=== PATIENT | male | born 2000 | race Caucasian/White ===

== ENCOUNTER 2020-03-31 19:33 | Emergency (ER) | payer OTHER, SELFPAY ==
[2020-03-31 20:10] VITALS: BP 137/92; PULSE 98; RESP 16; TEMP 36.4; O2SAT 95; BMI 17.2
--- NOTE | 2020-03-31 21:17 | ED_ITS ---
HPI - Psych General Chief Complaint: Psychiatric Symptoms Stated Complaint: crisis Time Seen by Provider: 03/31/20 21:37 Source: patient Mode of arrival: ambulatory Limitations: no limitations History of Present Illness HPI Narrative: 20-year-old male with significant psychiatric past medical history presents with casper, and over 6 months of medication noncompliance. He is unable to answer questions regarding his psychiatric state and if he is suicidal At this time. His answers are tangential and focused on his friend Duncan And continually states that he is enjoying the moment. He denies any physical complaints at this time, denies suicidal ideation, homicidal ideation, and auditory and visual hallucinations. Related Data Allergies Allergy/AdvReac Type Severity Reaction Status Date / Time No Known Allergies Allergy Verified 03/31/20 20:25 [No Known Allergies*] Review of Systems Review of Systems: Constitutional: No Fever, No Chills ENT/Mouth: No Ear Pain, No Nasal Congestion, No sore throat Eyes: No Eye Pain, No Swelling, No Redness Cardiovascular: No Chest Pain, No SOB Respiratory: No Cough, No Sputum, No Dyspnea Gastrointestinal: No Nausea, No Vomiting, No Diarrhea, No Hematochezia, No Melena Genitourinary: No Dysuria, No Urinary Frequency, No Hematuria Musculoskeletal: No Myalgias Skin: No Skin Lesions, No rash Neuro: No Weakness, No Numbness, No Paresthesias, No Dizziness, No Headache Psych: positive Anxiety, positive Depression, No SI/HI Heme/Lymph: No Lymphadenopathy Endocrine: No Polyuria, No Polydipsia Yes all other systems are reviewed and are negative [facility] Past Medical History Attestation statement: The following information was validated with the patient. Source: old records reviewed Social History Social History Advance Directives: No Advance Directives Information Provided: No Physical Exam Vital Signs: Vital Signs: Last Vital Signs Temp 98.1 F 03/31/20 23:20 Pulse 63 03/31/20 23:20 Resp 17 03/31/20 23:20 BP 134/88 03/31/20 23:20 Pulse Ox 97 03/31/20 23:20 Body Mass Index 17.2 Appearance: Alert. Oriented X3. No acute distress. Eyes: Pupils equal, round and reactive to light. ENT: Pharynx normal. Neck: Normal inspection. Neck supple. CVS: Normal heart rate and rhythm. Pulses normal. Respiratory: No respiratory distress. Breath sounds normal. Abdomen: Soft and nontender. Skin: Skin warm and dry. Normal skin color. Normal skin turgor. Extremities: No lower extremity edema. Neuro: No motor deficit. No sensory deficit. Course Course Course Narrative: 20-year-old male with significant psychiatric history presents with psychosis, casper, has not taken his medications in several months. plan of care is for drugs of abuse screen, M5 consult, care team -DEMETRIA burt. Reevaluation(s) Reevaluation #1: Care team Consult complete, plan is involuntary bed search for psychosis. Time: 00:29 MDM - Psych Differential Diagnosis Differential diagnosis: Likely acute psychosis, depression, drug-induced psychotic disorder, acute anxiety, mood disorder and schizoaffective disorder Restraints Face to Face Assessment: Face to Face Assessment: Current Situation: After assessment of the patient, a review of the pertinent medical record and a discussion with nursing staff, I feel the patient requires a restrain intervention. Reaction To: [] Medical Condition: [] Behavioral State: [] Continued Need: [] Medical Records Attestation: I reviewed the patient's medical records. Lab Data Attestation: I reviewed the patient's lab results. Discharge Plan Discharge Clinical Impression: Acute psychosis
--- NOTE | 2020-03-31 22:16 | PC.NURSE ---
Care team completed the assessment, patient compliant but tangential and pressured per Care team, patient disposition is inpatient bed search. patient denied any physical distress at this time, will continue to monitor.
[2020-03-31 23:20] VITALS: BP 134/88; PULSE 63; RESP 17; TEMP 36.7; O2SAT 97
--- NOTE | 2020-04-01 00:06 | PC.NURSE ---
Patient in milieu watching TV, hyperverbal/pressured/but in good behavioral control. Denied distress at this time, will continue to monitor.
[2020-04-01 01:23] LABS: Amphetamine Screen Urine Not Detected (Not Detect); Barbiturates, Urine Not Detected (Not Detect); Benzodiazepines Screen Urine Not Detected (Not Detect); Cannabinoid Screen Urine POSITIVE (Not Detect); Cocaine Screen Urine Not Detected (Not Detect); Opiate Screen Urine Not Detected (Not Detect); Phencyclidine Screen Urine Not Detected (Not Detect)
[2020-04-01] MEDS: LORazepam 1 MG TABLET PO ×2 (02:57→19:17)
[2020-04-01] MEDS: OLANZapine 5 MG TABLET PO ×2 (02:57→19:17)
--- NOTE | 2020-04-01 03:02 | PC.NURSE ---
Patient up sitting in chair in hallway, wide awake/hyperverbal/loud, patient offered choice of medication from past medication list which he stopped taking since August 2019, agreed to take olanzapine 5 mg and Ativan 1 mg , Provider notified/ordered Olanzapine 5 mg and Ativan 1 mg/adminstered/patient compliant/pending effect, will continue to monitor.
--- NOTE | 2020-04-01 04:26 | PC.NURSE ---
Patient responded well Ativan and Olanzapine administered earlier, patient is currently in bed appears sleeping comfortably, no distress observed/reported, respiration +/=/non-labored bilaterally, will continue to monitor.
--- NOTE | 2020-04-01 06:28 | PC.NURSE ---
Patient in bed appears sleeping, no distress observed/reported, respiration +/=/non-labored bilaterally, will continue to monitor.
--- NOTE | 2020-04-01 07:17 | PC.NURSE ---
Report received from SIGRID Layton. Pt resting, resp unlabored.
[2020-04-01 10:31] LABS: COVID-19 Test Negative (Negative)
--- NOTE | 2020-04-01 11:32 | MHC.CARE ---
Wing psych unit reviewed records and decided they will be taking patient from their ED for the available beds they have.
--- NOTE | 2020-04-01 11:36 | MHC.CARE ---
CARE Team faxed patients assessment and records to other facilities for [facility] bed search, awaiting response.
[2020-04-01 12:09] VITALS: BP 119/72; PULSE 51; TEMP 36.3; O2SAT 98
--- NOTE | 2020-04-01 12:46 | PC.NURSE ---
Pt approached nurses station, speech pressured, pt reviewing past events, states that he wants to protect other pt. C joanna angel.
--- NOTE | 2020-04-01 13:08 | PC.NURSE ---
pt refusing to take his zyprex at this time, states that he does need any medications
--- NOTE | 2020-04-01 15:24 | PC.NURSE ---
pt in common area, watching television. Pt educated re: olanzapine and lorazepam- will consider taking it if needed.
--- NOTE | 2020-04-01 16:03 | MHC.CARE ---
CARE received a return call from Pts mother who reported Pt has been increasingly manic over the past couple of weeks and felt he needed to be hospitalized to stabilize. Pts mother is concerned regarding the amount marijuana he is using as it contributes to his casper. Pts mother in agreement Pt needs to be hospitalized.
--- NOTE | 2020-04-01 16:08 | MHC.CARE ---
Pts bedsearch is exhausted for the day.
[2020-04-01 16:51] VITALS: BP 105/77; PULSE 61; RESP 20; TEMP 36.4; O2SAT 97
--- NOTE | 2020-04-01 19:07 | PC.NURSE ---
Report received. PT is resting quietly in his room. Calm and cooperative. Awaiting psych consult in the morning.
--- NOTE | 2020-04-01 22:00 | MHC.CARE ---
CARE team presented to [facility] pod for mental status update. Patient is too sedated to participate in meaningful conversation at this time. CARE team reviewed chart and collaterals. Plan is to continue bedsearch tomorrow. No change in disposition or diagnosis. Patient is on a section 12. Plan for psychiatry consult tomorrow. CARE team will complete a 24 hour reassessment tomorrow if placement is not found.
[2020-04-01 22:02] VITALS: BP 104/63; PULSE 61; RESP 16; TEMP 36.2; O2SAT 96
[2020-04-02 06:48] VITALS: BP 106/78; PULSE 86; RESP 17; TEMP 36.4; O2SAT 98
--- NOTE | 2020-04-02 07:18 | PC.NURSE ---
Report recieved. Pt currently walking around unit, calm and cooperative. PT denies complaints. Pt is inpatient bedsearch.
--- NOTE | 2020-04-02 10:05 | PC.NURSE ---
pt conversing appropriately w staff, expressing having some stressors r/t other pts in unit. pt verbalizes feeling more calm w therapeutic talk w staff. pt coloring w utensils calmly.
[2020-04-02 10:12] VITALS: BP 109/78; PULSE 80; RESP 16; TEMP 36.3; O2SAT 100
[2020-04-02] MEDS: Nicotine Polacrilex 2 MG GUM 4 MG BUCCAL (11:05)
--- NOTE | 2020-04-02 13:26 | MHC.CARE ---
Bedsearch is exhausted for the day.
[2020-04-02] MEDS: Nicotine Polacrilex 2 MG GUM BUCCAL ×3 (14:09→21:08)
--- NOTE | 2020-04-02 16:16 | PC.NURSE ---
pt sitting in millieu, conversing with other pts, calm and cooperative.
[2020-04-02 16:29] VITALS: BP 135/77; PULSE 73; RESP 19; TEMP 36.4; O2SAT 98
--- NOTE | 2020-04-02 19:23 | MHC.CARE ---
CARE team met with patient in [facility] pod room 5 at patient's request. He is asking to review the terms of his section 12 as he does not agree. Per nurses, patient has been calm and cooperative throughout the day. Patient did appear calm and in behavioral control. Patient also appeared to be attempting to demonstrate to CARE team how well he was behaving. Explained that he does not agree with his section 12. Shared that he agrees only that he is hyperverbal because he has a lot to say and sometimes interrupts, but that he has not done so recently. Patient is asking if he really needs to remain in the emergency room. CARE team explained the bedsearch, section 12, and mental status update process. Patient verbalized understanding. CARE team explained that patient's disposition would not change this evening but that if he is able to remain symptom-free overnight and CARE team sees that he is able to string a longer period of stability together, it is possible that it would be recommended he could discharge home prior to being placed. CARE team emphasized that keeping him in the ED is for his safety and that if he appears to continue to need stabilization, he will continue to be held here. Patient is in agreement that when he arrived to the ED he was not stable and that despite being calm today he still needs further care. Patient states he is in agreement to going to but that he does not want substance treatment. The longer patient and CARE team spoke, the more symptomatic patient appeared to become. Was still in control and pleasant, however patient began stating the reason he is doing better is that he has found out his friend Duncan is okay. Patient began stating he can't live without Duncan, and that if Duncan dies patient would not be able to continue to live. Spoke about this friend at length. Patient began talking about a variety of themes including sexuality and money. Patient reports now that I know I'm staying overnight I'm not taking medications. Was upset that the hospital does not allow micro-dosing. Patient mentioned a friend who is sick and that he had planned to bring her soup. When CARE team suggested perhaps patient's mother could deliver the soup he jumped up to arrange this. Was apologetic after he noticed the impulsivity of this and asked if the conversation could be continued later. Patient continues to be polite and pleasant despite ongoing symptom presentation. CARE team agreed to check in with patient later this evening.
[2020-04-02] MEDS: LORazepam 1 MG TABLET PO (22:32)
--- NOTE | 2020-04-02 22:45 | MHC.CARE ---
CARE team returned to pod to meet with patient as promised earlier. Met in patient's room [id number]. Patient speaking in circles. Talking about interpersonal relationships. At one point referenced that people expect him to be The Chosen One but when asked to clarify he stated his friend is the chosen one to him and he is the chosen one to many of his friends, referencing their importance to one another. Patient used the time to process. CARE offered empathic listening and support. Patient agreeable to evening medications. Reports he has an appointment with Zahra Le on Saturday for therapy. Indicates he feels he needs more frequent sessions but insurance won't cover it. Patient plans to take prn and try to sleep.
--- NOTE | 2020-04-03 01:08 | PC.NURSE ---
PT is sleeping in his room. Breathing is even and unlabored at this time. PT to be reevaluated in the morning by CARE team.
[2020-04-03] MEDS: Nicotine Polacrilex 2 MG GUM BUCCAL ×5 (05:53→19:54)
[2020-04-03 06:31] VITALS: BP 137/83; PULSE 72; RESP 16; TEMP 36.1; O2SAT 100
--- NOTE | 2020-04-03 07:46 | PC.NURSE ---
PT currently watching tv, attempting to interact with other patients. PT calm and cooperative, pleasant in conversation.
[2020-04-03 09:01] LABS: MANUAL DIFF FLAG NO
[2020-04-03 09:05] LABS: Basophils Percent Auto 0.4 % (0-2); Eosinophils Absolute Auto 0.1 X10*3/uL (0.0-0.4); Eosinophils Percent Auto 1.2 % (0-4); Hematocrit 44.7 % (42-52); Hemoglobin 14.9 g/dl (14.0-18.0); Imm Gran Abs Auto 0.01 X10*3/uL (0.00-0.03); Imm Gran Pct Auto 0.2 % (0.0-0.4); Lymphocytes Absolute Auto 1.1 X10*3/uL (1.2-4.9); Lymphocytes Percent Auto 21.5 % (20-40); Mean Corpuscular HGB Conc 33.3 g/dl (31.0-36.0); Mean Corpuscular Hemoglobin 29.9 pg (27.0-33.0); Mean Corpuscular Volume 89.8 fL (80-98); Mean Platelet Volume 10.4 fL (9.4-12.4); Monocytes Absolute Auto 0.5 X10*3/uL (0.1-1.2); Monocytes Percent Auto 9.1 % (2-11); Neutrophils Absolute Auto 3.3 X10*3/uL (2.0-8.3); Neutrophils Percent Auto 67.6 % (45-73); Platelet Count 212 X10*3/uL (160-400); Red Blood Count 4.98 X10*6/uL (4.60-5.80); Red Cell Distribution Width 12.9 % (11.0-16.0); White Blood Count 4.9 X10*3/uL (4.8-10.8)
[2020-04-03 09:15] VITALS: BP 105/83; PULSE 73; RESP 18; TEMP 36.9; O2SAT 100
[2020-04-03 09:46] LABS: Alanine Aminotransferase 21 U/L (0-40); Albumin Level 4.8 g/dL (3.5-5.0); Alkaline Phosphatase 62 U/L (39-117); Aspartate Amino Transferase 26 U/L (5-37); Bilirubin Direct 0.3 mg/dL (0.0-0.5); Bilirubin Total 0.5 mg/dL (0.0-1.0); Blood Urea Nitrogen 15 mg/dL (9-16); Calcium 9.3 mg/dL (8.4-10.2); Creatinine Clr Calc Pharmacy 91.9; Estimated Glomerular Filt Rate > 60; Glucose Random 95 mg/dL (60-115); Total Protein 7.4 g/dL (6.5-8.0)
[2020-04-03 10:00] LABS: Anion Gap 14 (12-20); Carbon Dioxide 27 mmol/L (22-29); Chloride 102 mmol/L (96-108); Potassium 4.4 mmol/l (3.3-5.1); Sodium 139 mmol/L (135-145)
[2020-04-03] MEDS: LORazepam 1 MG TABLET PO ×2 (13:50→21:03)
--- NOTE | 2020-04-03 14:04 | PC.NURSE ---
PT asking to leave, plan of care explained. Pt stating that he wants to talk to pat and if pat doesn't come down here to speak with him he will just leave. Explained he is on a section 12 and therefore cannot leave at this time. PT states he will just break a window and run and that we will not be able to catch him. Pt states i'm a psychiatrist, i'm the best psychiatrist and I don't agree with this . PT redirected, pt agreeable to take medication at this time, medicated per emar.
[2020-04-03 17:08] VITALS: BP 130/93; PULSE 82; RESP 20; TEMP 36.9; O2SAT 98
--- NOTE | 2020-04-03 18:11 | PC.NURSE ---
Pt cooperative with care. Hyperverbal. Pt requesting to leave, plan of care explained. Pt stating If i'm not out of here tomorrow i will figuratively burn this place to the ground . Pt easily redirected.
[2020-04-03 20:36] VITALS: BP 131/82; PULSE 81; RESP 20; TEMP 36.9; O2SAT 97
[2020-04-03 22:00] VITALS: RESP 18
[2020-04-04] VITALS (9 sets, daily range): BP systolic 109–127; BP diastolic 67–89; PULSE 69–88; RESP 16–20; TEMP 36.4–37.1; O2SAT 98–99
[2020-04-04] MEDS: LORazepam 1 MG TABLET PO (02:33)
--- NOTE | 2020-04-04 05:22 | PC.NURSE ---
S/E: Alert and oriented. Manic stage. Did not sleep at all despite of PRN Ativan 1 mg po at 2100 and 0230. Pt pacing and talking. Took a shower x2. Pt continues to be on section 2 and in patient bed search.
--- NOTE | 2020-04-04 07:27 | PC.NURSE ---
Report received from SIGRID Watt. Pt awake, alert, affect bright. Conversing w/ staff.
--- NOTE | 2020-04-04 10:44 | PC.NURSE ---
Pt awake, alert- hyperverbal at times, easily redirected. thought content appears to be organized- pt is able to recognize his own limits and able to maintain respectful, appropriate boundaries when challnged by other patients.
--- NOTE | 2020-04-04 11:06 | MHC.CARE ---
Pt was re-referred to Psych Consult and this was verified by M5.
[2020-04-04] MEDS: Nicotine Polacrilex 2 MG GUM BUCCAL ×2 (14:36→18:41)
--- NOTE | 2020-04-04 14:59 | PC.NURSE ---
pt in with social work. Pt became very upset earlier when another pt began to insult him. Pt declined to accept ativanat this time, but aware that medication is an option.
--- NOTE | 2020-04-04 15:55 | PC.NURSE ---
Abelino Chow in to evaluate pt. Pt appears much less upset, out in common area watching television.
--- NOTE | 2020-04-04 19:14 | PC.NURSE ---
Patient in milieu socializing with co-patients, denied distress, per report patient is in good behavioral control and had a good day so far. Will continue to monitor.
--- NOTE | 2020-04-04 19:33 | PM.PSYCN ---
History of Present Illness Chief Complaint: crisis Reason for Consult: medication recommendations Requesting physician: Jennifer Quinonez Discussed with referring provider: No (with RN) Sources of Information: patient interviewed and chart reviewed HPI Narrative: Patient is a 20 year old male with history of Bipolar I disorder. Currently in area of ED awaiting psychiatric admission. Presented to the ED as pressured, disorganized, tangential. Consult requested as patient has been awaiting placement for a few days. Pt seen in area of ED. Awake, alert, engaged in interview--though guarded. He reports he is in the ED because his friends and family are worried about him--he reports it was a text message he sent to all of them, but they just don't understand the butterfly effect He was very aware of the psychiatric admission process, and is asking to go home and do an intensive outpatient program . He believes if his insurance allowed him to see his therapist more than once a week everything would be fine . When asked about medications, he became upset and started to talk about abortions. He was redirectable and able to report that he does not like or want a mood stabilizer. He also stated that he did not like Risperdal. He is somewhat tangential and making loose associations (pill to lip-they are related because they are the same word spelled backwards). He is irritable, but has been in behavioral control during his stay in the ED. When he initially presented he was documented as having significant sx of casper. Past Psychiatric History: hx of psychiatric admissions Medical Evaluation Reviewed: Yes Review of Systems Psychiatric: Denies auditory hallucinations, Reports irritability, Denies visual hallucinations, Denies homicidal ideation and Denies suicidal ideation [facility] Social History: not reviewed Substance History: not reviewed, though hx of cannabis use disorder Diagnostics Vital Signs (24Hr): Vital Signs - 24 hr 04/03/20 20:36 04/03/20 22:00 04/04/20 00:00 Temperature 98.5 F Pulse Rate 81 Respiratory Rate 20 18 18 Blood Pressure 131/82 Pulse Oximetry 97 04/04/20 02:00 04/04/20 04:07 04/04/20 05:51 Temperature 97.8 F Pulse Rate 88 Respiratory Rate 18 16 18 Blood Pressure 109/89 Pulse Oximetry 99 04/04/20 09:46 04/04/20 12:00 04/04/20 16:46 Temperature 97.6 F 98.7 F Pulse Rate 69 70 Respiratory Rate 20 20 Blood Pressure 127/84 122/86 Pulse Oximetry 99 98 04/04/20 17:55 04/04/20 19:15 Temperature 97.7 F Pulse Rate 80 Respiratory Rate 20 20 Blood Pressure 111/67 Pulse Oximetry 98 Body Mass Index 17.2 Labs Results: 04/03/20 08:53 04/03/20 08:53 Labs: Laboratory Results - last 48 hr 04/03/20 04/03/20 08:53 08:53 WBC 4.9 RBC 4.98 Hgb 14.9 Hct 44.7 MCV 89.8 MCH 29.9 MCHC 33.3 RDW 12.9 Plt Count 212 MPV 10.4 Immature Gran % (Auto) 0.2 Neut % (Auto) 67.6 Lymph % (Auto) 21.5 [place] % (Auto) 9.1 Eos % (Auto) 1.2 Baso % (Auto) 0.4 Lymph # (Auto) 1.1 L [place] # (Auto) 0.5 Eos # (Auto) 0.1 Baso # (Auto) 0.0 Abs Immat Gran (auto) 0.01 Absolute Neuts (auto) 3.3 Absolute Nucleated RBC 0.000 Nucleated RBC % (auto) 0.0 Sodium 139 Potassium 4.4 Chloride 102 Carbon Dioxide 27 Anion Gap 14 BUN 15 Creatinine 0.97 Estim Creat Clear Calc 91.9 Estimated GFR > 60 Random Glucose 95 Calcium 9.3 Total Bilirubin 0.5 Direct Bilirubin 0.3 AST 26 ALT 21 Alkaline Phosphatase 62 Total Protein 7.4 Albumin 4.8 Mental Status Exam Mental Status Exam Patient Appearance: Appropriate Patient Orientation: Person, Place, Time and Situation Level of Consciousness: Awake and Alert Patient Behavior: Guarded, Talkative and Cooperative Mood Description: Expansive Affect Description: Suspicious and Expansive Speech Pattern: Clear and Animated Delusions: Not Present Thought Process: Intact Thought Content: positive for Loose Associations and positive for Tangential Abnormal Motor Activity Signs and Symptoms: Hyperactivity Judgement: Fair (limited) Medications Medications Current Medications Generic Name Dose Route Start Last Admin Trade Name Freq PRN Reason Stop Dose Admin Lorazepam 1 mg 04/01/20 12:53 04/04/20 02:33 Lorazepam 1 Mg Tablet PO 1 mg RQ4H PRN Administration anxiety/restlessness Nicotine Polacrilex 2 mg 04/02/20 18:01 04/04/20 18:41 Nicotine Polacrilex 2 Mg Gum BUCCAL 2 mg Q2H PRN Administration Nicotine Cravings Allergies Allergies Allergy/AdvReac Type Severity Reaction Status Date / Time No Known Allergies Allergy Verified 03/31/20 20:25 [No Known Allergies*] Assessment & Plan Assessment & Plan (1) Bipolar I disorder: Status: Acute Code(s): F31.9 - Bipolar disorder, unspecified Recommendations: Trial Trileptal 300mg BID (since he reported not liking [place]) Low dose Zyprexa BID 2.5mg BID Greater than 50% of the session was spent on counseling and/or coordination of care
== END 2020-04-04 21:25 | disposition home or self-care (01) ==
PROVIDERS: Nurse Practitioner Family; Physician Assistant Medical; Emergency Provider Emergency Medicine
DX: F23 Brief psychotic disorder (principal); Z91.14 Patient's other noncompliance with medication regimen; Z79.899 Other long term (current) drug therapy; Z20.828 Contact with and (suspected) exposure to other viral communicable diseases
CPT/HCPCS: 36415; 80048; 80076; 80307; 85025; 87635; 99284

== ENCOUNTER 2020-04-19 16:23 | Outpatient (REF) | payer OTHER, SELFPAY ==
[2020-04-19 18:45] LABS: Amphetamine Screen Urine Not Detected (Not Detect); Barbiturates, Urine Not Detected (Not Detect); Benzodiazepines Screen Urine Not Detected (Not Detect); Cannabinoid Screen Urine POSITIVE (Not Detect); Cocaine Screen Urine Not Detected (Not Detect); Opiate Screen Urine Not Detected (Not Detect); Phencyclidine Screen Urine Not Detected (Not Detect)
== END 2020-04-19 16:24 | disposition home or self-care (01) ==
LOC: HO.LAB 16:23
PROVIDERS: Visit Provider Clinical Nurse Specialist Psychiatric/Mental Health, Adult
DX: F31.60 Bipolar disorder, current episode mixed, unspecified (principal)
CPT/HCPCS: 80307

== ENCOUNTER 2020-04-26 09:00 | Outpatient (RCR) | payer OTHER, SELFPAY | END 2020-04-28 23:55 | disposition home or self-care (01) | LOC: HO.PAOS 09:00 | PROVIDERS: Visit Provider Counselor Mental Health | DX: F31.2 Bipolar disorder, current episode manic severe with psychotic features (principal); F12.20 Cannabis dependence, uncomplicated | CPT/HCPCS: 90834 ==

== ENCOUNTER 2020-04-28 09:30 | Outpatient (RCR) | payer OTHER, SELFPAY ==
--- NOTE | 2020-04-07 12:03 | PC.NURSE ---
Spoke with pt after Marysol Srivastava reported his increased agitation in groups. He presented as agitated and defensive over the phone when asked how he was doing. He was tangential, unable to stay on topic, and disorganized during the conversation. Discussed clinicians concern about his presentation in groups and that if he feels as if he is becoming more agitated within groups that he could leave and call this commercial underwriter or another clinician. Also informed him that if the clinicians think he is becoming more agitated with an inability to be redirected that they will remove him from group and he is to call this commercial underwriter. Pt agreed. Team will continue to monitor pt's erratic behavior for potential crisis assessment referral.
--- NOTE | 2020-04-07 13:13 | PC.NURSE ---
Unable to complete nursing assessment at this time as pt is not answering his phone and I am unable to leave message on patients voicemail as his mailbox is full. Staff in group gave patient my number to call me. Awaiting a call from patient.
--- NOTE | 2020-04-07 16:29 | HO.PS.ADMBH ---
HPI Chief Complaint: casper, delusions Sources of Information: patient interviewed and chart reviewed HPI Narrative: 20 yo male, referral by CARE Team, after an ER admit of several days without placement. Hx of Bipolar I, Cannabis use disorder, Cannabis induced psychosis. Resistant to medications, having stopped meds September 2019. Pt presented per recommendation of a friends family to his family with delusional, hypomanic sx which persist. Pt tells me he feels great . 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 He does not understand why people are worried about him. We discussed history and symptoms, hx of hospitalizations and medications. I don't want to take medicine, but if you think I really need it I will take it. I like nicotine-it helps, I like CBD-it helps, I gave up pot on 03/30-I had been buying it from [employer]. Discussed concerns about medical identification theft as well. Education provided regarding HIPPA Past Psychiatric History: In Pt- 2, two with [facility], two with [facility] Out Pt-Zahra Le-psychotherapy; hx of psychopharmacology with blurb writer, however, stopped attending virtual appts September 2019. Trials: [place], Risperdal, Lamictal, Olanzapine Medical Evaluation Reviewed: No (NA) [facility] Social History: lives with parents, siblings. 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 Meds/Allergies Allergies Allergies Allergy/AdvReac Type Severity Reaction Status Date / Time No Known Allergies Allergy Verified 03/31/20 20:25 [No Known Allergies*] Mental Status Exam Mental Status Exam Patient Orientation: Person, Place, Time and Situation Level of Consciousness: Awake, Restless and Alert Patient Behavior: Talkative, Hyperactive, Cooperative, Suspicious (HIPPA issues, EHR issues), Restless, Anxious, Resistive to Care (resistive to medications initially), Distractible and Impulsive Mood Description: Happy, Suspicious (at times), Cheerful, Labile, Elated (at times), Apprehensive and Expansive Affect Description: Labile Patient Cognition Impaired: No Ability to Follow Directions: Fair Speech Pattern: Clear, Spontaneous Speech, Rambling, Cofabulation, Rapid (at times) and Pressured (at times) Memory Description: Intact Hallucinations: None Delusions: Grandiose Thought Process: Distracted Thought Content: positive for Flight of Ideas and positive for Circumstantial Depressive Symptoms: Difficulty Concentrating Abnormal Motor Activity Signs and Symptoms: Hyperactivity Judgement: Fair Assessment & Plan Patient educated on: diagnosis, medication risk/benefits (Plan: Trial of Abilify 10 mg HS), substance abuse and therapeutic strategies Informed Consent: does not understand and further education needed Reason for continued partial hosp. stay Substantial Risk for: harm to self, harm to others, inability to function and rapid decompensation Certification I certify that partial hospital treatment is medically necessary due to the symptoms and problems resulting from the patient's mental illness and the failure to treat the patient at the partial hospital level of care would likely result in the patient requiring inpatient psychiatric care which could not be prevented at a less intensive level of care.
--- NOTE | 2020-04-08 08:59 | PC.NURSE ---
Patient is a 20 year old male who was referred by [facility] d/t mood instability. Patient was recently evaluated in the [facility] where he was admitted from 03/29-04/04/20 d/t manic and delusional presentation. He struggles to come to terms with his mental health and has been non-compliant with psychiatric medications for the past 6 months. He was discharged from the ED on 04/04/20 as he reportedly did not meet level of care criteria. Patient was not prescribed medications following d/c. Patient presents with some mood lability. Speech is tangential. He stated he is here because, my friend Duncan texted my sister, I am here for him and myself . I'm trying to prove a point, I'm not mentally ill I'm going through a phase. My family has a history of mental health and depression I'm different . He denied any medical issues. Reports using Hx of using marijuana all day every day however reports that he quit, last use 03/30/20. He described Marijuana as Gods gift and the devils lettuce . Denied SI. Reports that he did have thoughts about punching others however stated he has never hit anyone although others have hit him. Patient gave verbal permission to email him a copy of his safety plan.
[2020-04-08 10:01] VITALS: BMI 17.2
--- NOTE | 2020-04-08 10:05 | PC.NURSE ---
Spoke with pt regarding a report from the medication provider that he did not want to staff speaking with his parents. He reported that he said he wanted to think about it . He agreed that staff could speak with his parents on an emergency basis only.
--- NOTE | 2020-04-08 15:22 | P.EN_ITS ---
Event Note Date of Service: 04/08/20 Event Note: Received an email from pt's mother requesting that development writer talk with pt's father today. Permission denied by pt. He asks for both parents to be called only in the event where he has an emergency while in [facility].
--- NOTE | 2020-04-11 12:51 | HO.PHPPROGNO ---
Subjective Subjective Reason For Visit: casper, delusions Interim History: Narrative: 20 yo male, referral by CARE Team, after an ER admit of several days without placement. Hx of Bipolar I, Cannabis use disorder, Cannabis induced psychosis. Resistant to medications, having stopped meds September 2019. Pt presented per recommendation of a friends family to his family with delusional, hypomanic sx which persist. Pt tells me he feels great . 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 He does not understand why people are worried about him. We discussed history and symptoms, hx of hospitalizations and medications. I don't want to take medicine, but if you think I really need it I will take it. I like nicotine-it helps, I like CBD-it helps, I gave up pot on 03/30-I had been buying it from [employer]. Discussed concerns about medical identification theft as well. Education provided regarding HIPPA Past Psychiatric History: In Pt- 4, two with [facility], two with [facility] Out Pt-[facility]psych[facility]; hx of psychopharmacology with tag writer, however, stopped attending virtual appts September 2019. Trials: [place]enh[place], Risperdal, Lamictal, Olanzapine current note 04/11/2020 Pt seen at [facility] pts mood anxious has been dealing with issues related to shame paranoia and difficulty in stopping marijuana use. HAS BEEN DEALING WITH CHRONIC ISSUES OF SHAME secondary to events of years ago when he was withdrawn as classes president. He has a lot of embarrassment regarding his psychiatric condition and this is mixed chronic paranoia in the environment feeling that people are targeting him talking about him patient did just start Abilify 10 mg has been attending [facility] Mental Status Exam Mental Status Exam Patient Orientation: Person, Place, Time and Situation Level of Consciousness: Awake, Restless and Alert Patient Behavior: Talkative, Cooperative, Suspicious (HIPPA issues, EHR issues), Restless, Anxious, Resistive to Care (resistive to medications initially), Distractible and Impulsive Mood Description: Happy, Suspicious (at times), Cheerful, Labile, Elated (at times), Apprehensive and Expansive Affect Description: Labile Patient Cognition Impaired: No Ability to Follow Directions: Fair Speech Pattern: Clear, Spontaneous Speech, Rambling, Cofabulation, Rapid (at times) and Pressured (at times) Memory Description: Intact Hallucinations: None Delusions: Paranoid Ideation Thought Process: Distracted Thought Content: positive for Flight of Ideas and positive for Circumstantial Depressive Symptoms: Difficulty Concentrating Abnormal Motor Activity Signs and Symptoms: Hyperactivity Judgement: Fair Diagnostics Vital Signs (24Hr): Body Mass Index 17.2 Assessment & Plan Assessment & Plan (1) Bipolar I disorder: Status: Acute Code(s): F31.9 - Bipolar disorder, unspecified (2) Cannabis use disorder, moderate, dependence: Status: Acute Code(s): F12.20 - Cannabis dependence, uncomplicated Assessment and Plan: encourage sobriety contributing factor to intermittent psychosis of marijuana use. Patient has had a difficult time stopping patient somewhat pressured in group has a mixture of what appeared to be past delusional concerns reality concerns the present has generally not taken medication in an ongoing way encouraged continued sobriety encouraged Abilify increased doses as tolerated but without alienating the patient Certification I certify that partial hospital treatment is medically necessary due to the symptoms and problems resulting from the patient's mental illness and the failure to treat the patient at the partial hospital level of care would likely result in the patient requiring inpatient psychiatric care which could not be prevented at a less intensive level of care. Greater than 50% of the session was spent on counseling and/or coordination of care Discharge Plan Discharge Attending provider: Juan José Pang Medications: New aripiprazole [Abilify] 10 mg tablet 10 mg PO DAILY Qty: 14 RF: 1
--- NOTE | 2020-04-13 12:51 | PC.NURSE ---
Spoke with pt regarding his request for a trauma focused marijuana rehab facility. Discussed that while there are trauma focused treatment centers and a few marijuana treatment centers, at this time we are not aware of a facility that provides both. He chose to focus on his trauma and requested a referral to [facility] for further treatment upon discharge from [facility].
--- NOTE | 2020-04-18 16:47 | HO.PHPPROGNO ---
Subjective Subjective Date of Service: 04/18/20 Reason For Visit: casper, delusions Interim History: Pt seen in f/u discussing how drugs were destructive to him going to gym going to marijuana mtgs Medication Compliance: Yes Mental Status Exam Mental Status Exam Narrative: has racing thoughts preoccupied Patient Orientation: Person, Place, Time and Situation Level of Consciousness: Awake Patient Behavior: Appropriate Mood Description: Labile Affect Description: Labile and Expansive Hallucinations: None Delusions: Paranoid Ideation and Grandiose Thought Process: Racing Thought Content: positive for Racing, positive for Perseveration, negative for Suicidal Ideation and negative for Homicidal Ideation Judgement and Insight: accepts he is bipolar only sleeping few hrs nite Diagnostics Vital Signs (24Hr): Body Mass Index 17.2 Assessment & Plan Patient educated on: diagnosis, medication risk/benefits, substance abuse and therapeutic strategies Informed Consent: further education needed (improving insight) Reason for contiued partial hosp. stay Substantial Risk for: inability to function and rapid decompensation Certification I certify that partial hospital treatment is medically necessary due to the symptoms and problems resulting from the patient's mental illness and the failure to treat the patient at the partial hospital level of care would likely result in the patient requiring inpatient psychiatric care which could not be prevented at a less intensive level of care. Greater than 50% of the session was spent on counseling and/or coordination of care Discharge Plan Discharge Attending provider: Juan José Pang Medications: New aripiprazole [Abilify] 10 mg tablet 10 mg PO DAILY Qty: 14 RF: 1 oxcarbazepine [Trileptal] 150 mg tablet 150 mg PO BEDTIME Qty: 20 RF: 0
--- NOTE | 2020-04-22 12:28 | HO.PHPPROGNO ---
Subjective Subjective Date of Service: 04/21/20 Reason For Visit: casper, delusions Interim History: the patient is seen through tele health appointment while attending partial hospital program. Complains of insomnia normally goes to sleep about 1 or 2 in the morning he tried Trileptal 150 mg and repeated 150 mg at 2 in the morning. He is less agitated better able to be reflective reportedly in group Medication Compliance: Intermittent Mental Status Exam Mental Status Exam Narrative: the patient was calmer more reflective less pressured. Was somewhat anxious not get he euphoric or grandiose during this conversation complained of anxiety difficulty shutting his brain down when trying to go to sleep no thoughts of harm to himself or others no gross delusional material he was able to reflect and was asking for help Diagnostics Vital Signs (24Hr): Body Mass Index 17.2 Assessment & Plan Assessment & Plan (1) Bipolar I disorder: Status: Acute Code(s): F31.9 - Bipolar disorder, unspecified Assessment and Plan: patient states he remains sober complains of insomnia anxiety racing thoughts. We discussed taking 300 mg of Trileptal at bedtime suggested taking the medication at 10 or 11:00 o'clock aiming for sleep by midnight discussed using relaxation breathing and music. Hydroxyzine 25 b.i.d. p.r.n. anxiety/insomnia Abilify can increase to 15 mg follow-up next week Patient educated on: diagnosis, medication risk/benefits and therapeutic strategies Informed Consent: further education needed Certification I certify that partial hospital treatment is medically necessary due to the symptoms and problems resulting from the patient's mental illness and the failure to treat the patient at the partial hospital level of care would likely result in the patient requiring inpatient psychiatric care which could not be prevented at a less intensive level of care. Greater than 50% of the session was spent on counseling and/or coordination of care Discharge Plan Discharge Attending provider: Juan José Pang Medications: New aripiprazole [Abilify] 10 mg tablet 10 mg PO DAILY Qty: 14 RF: 1 oxcarbazepine [Trileptal] 150 mg tablet 150 mg PO BEDTIME Qty: 20 RF: 0 hydroxyzine HCl 25 mg tablet 25 mg PO BID PRN (Reason: anxiety/insomnia) Qty: 20 RF: 0
--- NOTE | 2020-04-26 17:10 | HO.PHPPROGNO ---
Subjective Subjective Date of Service: 04/28/20 Reason For Visit: casper, delusions Interim History: pt showing more insight less agitation less PI taking medication marked difficulty with sleep Medication Compliance: Yes Mental Status Exam Mental Status Exam Narrative: the patient was calmer more reflective less pressured. Was somewhat anxious not get he euphoric or grandiose during this conversation complained of anxiety difficulty shutting his brain down when trying to go to sleep no thoughts of harm to himself or others no gross delusional material he was able to reflect and was asking for help no si no hi Diagnostics Vital Signs (24Hr): Body Mass Index 17.2 Assessment & Plan Assessment & Plan (1) Bipolar I disorder: Status: Acute Code(s): F31.9 - Bipolar disorder, unspecified Assessment and Plan: increase Abilify to 15 mg daily hydroxyzine 25-50 at bedtime Trileptal 150 in the morning 450 at bedtime continue to encourage abstinence decrease toxic social media patient showing significant improvement in insight and judgment seroquel 25-50 hs as needed insomnia Certification I certify that partial hospital treatment is medically necessary due to the symptoms and problems resulting from the patient's mental illness and the failure to treat the patient at the partial hospital level of care would likely result in the patient requiring inpatient psychiatric care which could not be prevented at a less intensive level of care. Greater than 50% of the session was spent on counseling and/or coordination of care Discharge Plan Discharge Attending provider: Juan José Pang Medications: New hydroxyzine HCl 25 mg tablet 25 mg PO BID PRN (Reason: anxiety/insomnia) Qty: 20 RF: 0 aripiprazole [Abilify] 15 mg tablet 15 mg PO DAILY 30 Days Qty: 30 RF: 0 oxcarbazepine 150 mg tablet 150 mg PO DIRECTED 14 Days Qty: 14 RF: 1 quetiapine [Seroquel] 25 mg tablet 25 mg PO BEDTIME Qty: 30 RF: 0 Telehealth Telehealth Location of provider rendering services: practice address Location of patient: address on file Patient Identification confirmed using: Name, : Yes Telehealth method: voice only Patient verbally consented to treatment: Yes
--- NOTE | 2020-04-29 07:32 | PC.NURSE ---
Appointments were made for client fro therapist and prescriber at [facility]. I E maioled therapist about dc plan and progress with Swati application. I left her a copy of the application.
--- NOTE | 2020-05-03 10:08 | PC.NURSE ---
Faxed results to patients PCP on Labs completed 04/30/20 and EKG completed 05/02/20. Evert Moe.
== END 2020-04-28 23:55 | disposition home or self-care (01) ==
LOC: HO.PHPA 09:30
PROVIDERS: Visit Provider Psychiatry & Neurology Psychiatry
DX: F31.9 Bipolar disorder, unspecified (principal); F12.20 Cannabis dependence, uncomplicated; G47.00 Insomnia, unspecified; Z79.899 Other long term (current) drug therapy
CPT/HCPCS: 90792; 90853; 99213; 99214

== ENCOUNTER 2020-04-30 08:23 | Outpatient (REF) | payer OTHER, SELFPAY ==
[2020-04-30 09:01] LABS: MANUAL DIFF FLAG NO
[2020-04-30 09:03] LABS: Basophils Percent Auto 0.8 % (0-2); Eosinophils Absolute Auto 0.1 X10*3/uL (0.0-0.4); Eosinophils Percent Auto 3.3 % (0-4); Hematocrit 40.6 % (42-52); Hemoglobin 13.9 g/dl (14.0-18.0); Imm Gran Abs Auto 0.01 X10*3/uL (0.00-0.03); Imm Gran Pct Auto 0.3 % (0.0-0.4); Lymphocytes Percent Auto 26.1 % (20-40); Mean Corpuscular HGB Conc 34.2 g/dl (31.0-36.0); Mean Corpuscular Hemoglobin 30.3 pg (27.0-33.0); Mean Corpuscular Volume 88.5 fL (80-98); Mean Platelet Volume 10.5 fL (9.4-12.4); Monocytes Absolute Auto 0.4 X10*3/uL (0.1-1.2); Monocytes Percent Auto 9.4 % (2-11); Neutrophils Absolute Auto 2.4 X10*3/uL (2.0-8.3); Neutrophils Percent Auto 60.1 % (45-73); Platelet Count 175 X10*3/uL (160-400); Red Blood Count 4.59 X10*6/uL (4.60-5.80); Red Cell Distribution Width 13.2 % (11.0-16.0)
[2020-04-30 09:23] LABS: Estimated Average Glucose 103 mg/dL; Hemoglobin A1C 122.1789 umol/L; Hemoglobin A1c % 5.2 %
[2020-04-30 09:47] LABS: Thyroid Stimulating Hormone 1.59 uIU/mL (0.32-4.0)
[2020-04-30 10:03] LABS: Alanine Aminotransferase 59 U/L (0-40); Albumin Level 4.4 g/dL (3.5-5.0); Alkaline Phosphatase 59 U/L (39-117); Anion Gap 13 (12-20); Aspartate Amino Transferase 41 U/L (5-37); Bilirubin Total 0.7 mg/dL (0.0-1.0); Blood Urea Nitrogen 15 mg/dL (9-16); Calcium 8.9 mg/dL (8.4-10.2); Carbon Dioxide 30 mmol/L (22-29); Chloride 101 mmol/L (96-108); Cholesterol 106 mg/dL; Estimated Glomerular Filt Rate > 60; Glucose Random 93 mg/dL (60-115); HDL Cholesterol 55 mg/dL; LDL Cholesterol Calculated 44 mg/dl; Potassium 3.7 mmol/l (3.3-5.1); Sodium 140 mmol/L (135-145); Total Protein 7.1 g/dL (6.5-8.0); Triglycerides 36 mg/dL
== END 2020-04-30 08:24 | disposition home or self-care (01) ==
LOC: HO.LAB 08:23
PROVIDERS: Visit Provider Clinical Nurse Specialist Psychiatric/Mental Health, Adult
DX: F31.2 Bipolar disorder, current episode manic severe with psychotic features (principal)
CPT/HCPCS: 36415; 80053; 80061; 83036; 84443; 85025

== ENCOUNTER 2020-05-02 09:57 | Outpatient (REF) | payer OTHER, SELFPAY ==
--- NOTE | 2020-05-02 10:07 | ECG_ITS ---
Test Reason : BRETT QTC PROLONGATON Blood Pressure : / mmHG Vent. Rate : 074 BPM Atrial Rate : 074 BPM P-R Int : 138 ms QRS Dur : 086 ms QT Int : 370 ms P-R-T Axes : 071 072 059 degrees QTc Int : 410 ms Normal sinus rhythm with sinus arrhythmia Possible Left atrial enlargement Borderline ECG No previous ECGs available Referred By: Dulce Salazar Electronically Signed By:Neeraj Ambriz
== END 2020-05-02 09:58 | disposition home or self-care (01) ==
LOC: HO.LAB 09:57
PROVIDERS: Visit Provider Clinical Nurse Specialist Psychiatric/Mental Health, Adult
DX: F31.2 Bipolar disorder, current episode manic severe with psychotic features (principal)
CPT/HCPCS: 93005

== ENCOUNTER 2021-12-07 16:29 | Inpatient (IN) | payer OTHER, SELFPAY ==
[2021-12-07 17:08] VITALS: BP 150/91; PULSE 76; RESP 18; TEMP 36.3; O2SAT 98; BMI 22.9
--- NOTE | 2021-12-07 17:20 | PC.NURSE ---
father phone-mert [phone], mother sangita [phone]
[2021-12-07 17:25] LABS: MANUAL DIFF FLAG NO
[2021-12-07 17:29] LABS: Basophils Absolute Auto 0.1 X10*3/uL (0.0-0.2); Basophils Percent Auto 0.7 % (0-2); Hematocrit 42.7 % (42.0-52.0); Hemoglobin 14.8 g/dl (14.0-18.0); Imm Gran Abs Auto 0.02 X10*3/uL (0.00-0.03); Imm Gran Pct Auto 0.3 % (0.0-0.4); Lymphocytes Percent Auto 15.3 % (20-40); Mean Corpuscular HGB Conc 34.7 g/dl (31.0-36.0); Mean Corpuscular Volume 83.7 fL (80.0-98.0); Mean Platelet Volume 10.2 fL (9.4-12.4); Monocytes Absolute Auto 0.7 X10*3/uL (0.1-1.2); Monocytes Percent Auto 11.1 % (2-11); Neutrophils Absolute Auto 4.8 x10*3/uL (2.0-8.3); Neutrophils Percent Auto 72.6 % (45-73); Platelet Count 245 X10*3/uL (160-400); Red Cell Distribution Width 13.2 % (11.0-16.0); White Blood Count 6.7 X10*3/uL (4.8-10.8)
[2021-12-07 17:47] LABS: Alanine Aminotransferase 21 U/L (0-40); Albumin Level 5.2 g/dL (3.5-5.0); Alkaline Phosphatase 65 U/L (39-117); Anion Gap 20 (12-20); Aspartate Amino Transferase 28 U/L (5-37); Bilirubin Total 1.7 mg/dL (0.0-1.0); Blood Urea Nitrogen 7 mg/dL (9-16); Calcium 9.8 mg/dL (8.4-10.2); Carbon Dioxide 23 mmol/L (22-29); Chloride 99 mmol/L (96-108); Creatinine Clr Calc Pharmacy 102.5; Estimated Glomerular Filt Rate > 60; Ethanol < 10 mg/dL; Glucose Random 86 mg/dL (60-115); Potassium 3.8 mmol/L (3.3-5.1); Sodium 138 mmol/L (135-145)
[2021-12-07 17:50] LABS: COVID-19 Test Negative (Negative); IDNOW Serial# 55D5AD1C
--- NOTE | 2021-12-07 17:50 | ED_ITS ---
HPI - Psych General Chief Complaint: Psychiatric Symptoms Stated Complaint: Crisis Time Seen by Provider: 12/07/21 16:44 Source: patient Mode of arrival: ambulatory Limitations: no limitations History of Present Illness HPI Narrative: Patient was brought to the emergency department by his father. Today he presented to an old employer with bizarre behaviors no clear understanding as to why he was at this employment site. His old boss subsequently drove the patient to his father's home. Patient's father reports that he has been having difficulty with his mood for the past few weeks, not currently taking any medications, father since this may be due to his THC usage. When asking patient why he is here it is clear to any difficult story. He is fixated on his family is substance usage either past or current, denies any drug or alcohol usage for himself aside from marijuana/THC. He makes mention of attending AA and NA meetings but it is unclear whether this is himself personally or others. Is also fixating on latter-day beliefs, and the practices of others. He is very irritable, significantly pressured speech, appearing very manic. He denies any physical concerns at this time. Related Data Previous Rx's Medication Instructions Recorded aripiprazole 15 mg tablet (Abilify) 15 mg PO DAILY 30 days #30 tabs 04/26/20 quetiapine 25 mg tablet (Seroquel) 25 mg PO BEDTIME #30 tabs 04/27/20 hydroxyzine HCl 25 mg tablet 25 mg PO BID PRN anxiety/insomnia 05/03/20 #30 tabs oxcarbazepine 600 mg tablet 600 mg PO BEDTIME #14 tabs 05/03/20 quetiapine 25 mg tablet (Seroquel) 25 mg PO BEDTIME #30 tabs 05/11/20 Allergies Allergy/AdvReac Type Severity Reaction Status Date / Time No Known Allergies Allergy Verified 03/31/20 20:25 [No Known Allergies*] Review of Systems Review of Systems: Constitutional: No fever, chills, weakness or fatigue. Skin: No rash or itching. Cardiovascular: No chest pain, chest pressure or chest discomfort. No palpitati ons Respiratory: No shortness of breath, cough or sputum production. Gastrointestinal: No nausea, vomiting or diarrhea. No abdominal pain Genitourinary: No burning micturition. No urinary frequency or incontinence. Musculoskeletal: No muscle pain, back pain, joint pain or stiffness. Psychiatric: No depression or anxiety. Yes all other systems are reviewed and are negative ON LICENSE OF [facility] Past Medical History Attestation statement: The following information was validated with the patient. Source: old records reviewed Medical History Cannabis use disorder, moderate, dependence No known health problems Social History Social History Household Members: Family Advance Directives: No Advance Directives Information Provided: No Healthcare Proxy: No Guardian: No Physical Exam Vital Signs: Vital Signs: Last Vital Signs Temp 97.3 F 12/07/21 17:08 Pulse 76 12/07/21 17:08 Resp 18 12/07/21 17:08 BP 150/91 H 12/07/21 17:08 Pulse Ox 98 12/07/21 17:08 O2 Del Method 12/07/21 17:08 BMI result Body Mass Index 22.9 Appearance: Alert.?Oriented to person, appears manic, tangential thoughts, pressured speech. Eyes: Pupils equal, round and reactive to light.? ENT: Pharynx normal.?? Neck: Normal inspection.? Neck supple.?? CVS: Heart sounds normal. Normal heart rate and rhythm.? Pulses normal.?? Respiratory: No respiratory distress.? Lung sounds clear to auscultation bilaterally?? Abdomen: Soft and non-tender. Normoactive bowel sounds. ?? Skin: Skin warm and dry.? Normal skin color.? ? Extremities: No lower extremity edema.? Neuro: Moves all extremities spontaneously. Sensation intact bilaterally. CN II- XII intact. No focal neuro deficits. Ambulates with normal steady gait. Course Course Course Narrative: Patient is a 21-year-old male with a past medical history of acute psychosis, bipolar disorder, cannabis use presenting to emergency department with his father in acute sandy. Is very difficult to obtain much history from patient as he is not able to provide any clear train of thought. He has common cooperative with staff at this time. Will obtain basic labs including CBC, CMP, ethanol level, drug abuse be a COVID-19 testing, and patient will be referred to crisis for evaluation. Reevaluation(s) Reevaluation #1: Labs are overall unremarkable. AU only significant for marijuana, ethanol level negative. Patient will be placed in physician observation at this time, s he will require additional time to be evaluated by crisis. Continues to be in no apparent distress, is overall well-appearing, hemodynamically stable. [facility] - Psych Medical Records Attestation: I reviewed the patient's medical records. Lab Data Attestation: I reviewed the patient's lab results. Result diagrams: 12/07/21 17:19 12/07/21 17:19 Labs: Lab Results 12/07/21 12/07/21 12/07/21 Range/Units 17:08 17:19 17:19 WBC 6.7 (4.8-10.8) X10*3/uL RBC 5.10 (4.60-5.80) X10*6/uL Hgb 14.8 (14.0-18.0) g/dl Hct 42.7 (42.0-52.0) % MCV 83.7 (80.0-98.0) fL MCH 29.0 (27.0-33.0) pg MCHC 34.7 (31.0-36.0) g/dl RDW 13.2 (11.0-16.0) % Plt Count 245 (160-400) X10*3/uL MPV 10.2 (9.4-12.4) fL Immature Gran % (Auto) 0.3 (0.0-0.4) % Neut % (Auto) 72.6 (45-73) % Lymph % (Auto) 15.3 L (20-40) % Cameron % (Auto) 11.1 H (2-11) % Eos % (Auto) 0.0 (0-4) % Baso % (Auto) 0.7 (0-2) % Lymph # (Auto) 1.0 L (1.2-4.9) X10*3/uL Cameron # (Auto) 0.7 (0.1-1.2) X10*3/uL Eos # (Auto) 0.0 (0.0-0.4) X10*3/uL Baso # (Auto) 0.1 (0.0-0.2) X10*3/uL Abs Immat Gran (auto) 0.02 (0.00-0.03) X10*3/uL Absolute Neuts (auto) 4.8 (2.0-8.3) x10*3/uL Absolute Nucleated RBC 0.000 (0.0-0.012) X10*3/uL Nucleated RBC % (auto) 0.0 (0.0-0.2) /100WBC Sodium 138 (135-145) mmol/L Potassium 3.8 (3.3-5.1) mmol/L Chloride 99 (96-108) mmol/L Carbon Dioxide 23 (22-29) mmol/L Anion Gap 20 (12-20) BUN 7 L (9-16) mg/dL Creatinine 1.15 (0.5-1.4) mg/dL Estim Creat Clear Calc 102.5 Estimated GFR > 60 Random Glucose 86 (60-115) mg/dL Calcium 9.8 D (8.4-10.2) mg/dL Total Bilirubin 1.7 H (0.0-1.0) mg/dL AST 28 (5-37) U/L ALT 21 (0-40) U/L Alkaline Phosphatase 65 (39-117) U/L Total Protein 8.0 (6.5-8.0) g/dL Albumin 5.2 H (3.5-5.0) g/dL Urine Opiates Screen (Not Detect) Urine Fentanyl Screen (Not Detect) Ur Barbiturates Screen (Not Detect) Ur Phencyclidine Scrn (Not Detect) Ur Amphetamines Screen (Not Detect) U Benzodiazepines Scrn (Not Detect) Urine Cocaine Screen (Not Detect) U Marijuana (THC) Screen (Not Detect) Ethyl Alcohol < 10 mg/dL COVID-19 (ASHTYN) Negative (Negative) COVID-19 Clin Com See Note 12/07/21 Range/Units 17:26 WBC (4.8-10.8) X10*3/uL RBC (4.60-5.80) X10*6/uL Hgb (14.0-18.0) g/dl Hct (42.0-52.0) % MCV (80.0-98.0) fL MCH (27.0-33.0) pg MCHC (31.0-36.0) g/dl RDW (11.0-16.0) % Plt Count (160-400) X10*3/uL MPV (9.4-12.4) fL Immature Gran % (Auto) (0.0-0.4) % Neut % (Auto) (45-73) % Lymph % (Auto) (20-40) % Cameron % (Auto) (2-11) % Eos % (Auto) (0-4) % Baso % (Auto) (0-2) % Lymph # (Auto) (1.2-4.9) X10*3/uL Cameron # (Auto) (0.1-1.2) X10*3/uL Eos # (Auto) (0.0-0.4) X10*3/uL Baso # (Auto) (0.0-0.2) X10*3/uL Abs Immat Gran (auto) (0.00-0.03) X10*3/uL Absolute Neuts (auto) (2.0-8.3) x10*3/uL Absolute Nucleated RBC (0.0-0.012) X10*3/uL Nucleated RBC % (auto) (0.0-0.2) /100WBC Sodium (135-145) mmol/L Potassium (3.3-5.1) mmol/L Chloride (96-108) mmol/L Carbon Dioxide (22-29) mmol/L Anion Gap (12-20) BUN (9-16) mg/dL Creatinine (0.5-1.4) mg/dL Estim Creat Clear Calc Estimated GFR Random Glucose (60-115) mg/dL Calcium (8.4-10.2) mg/dL Total Bilirubin (0.0-1.0) mg/dL AST (5-37) U/L ALT (0-40) U/L Alkaline Phosphatase (39-117) U/L Total Protein (6.5-8.0) g/dL Albumin (3.5-5.0) g/dL Urine Opiates Screen Not Detected (Not Detect) Urine Fentanyl Screen Not Detected (Not Detect) Ur Barbiturates Screen Not Detected (Not Detect) Ur Phencyclidine Scrn Not Detected (Not Detect) Ur Amphetamines Screen Not Detected (Not Detect) U Benzodiazepines Scrn Not Detected (Not Detect) Urine Cocaine Screen Not Detected (Not Detect) U Marijuana (THC) Screen POSITIVE H (Not Detect) Ethyl Alcohol mg/dL COVID-19 (ASHTYN) (Negative) COVID-19 Clin Com Discharge Plan Discharge Clinical Impression: Bipolar I disorder, Sandy Patient Disposition: Still a Patient Prescriptions: No Action aripiprazole [Abilify] 15 mg tablet 15 mg PO DAILY 30 Days Qty: 30 0RF quetiapine [Seroquel] 25 mg tablet 25 mg PO BEDTIME Qty: 30 0RF Rx Instructions: 1 tab bedtime may take up to 2 tabs at bedtime for sleep/sandy oxcarbazepine 600 mg tablet 600 mg PO BEDTIME Qty: 14 1RF hydroxyzine HCl 25 mg tablet 25 mg PO BID PRN (Reason: anxiety/insomnia) Qty: 30 0RF quetiapine [Seroquel] 25 mg tablet 25 mg PO BEDTIME Qty: 30 0RF Rx Instructions: 1-2 tabs at bedtime
[2021-12-07 18:00] LABS: Amphetamine Screen Urine Not Detected (Not Detect); Barbiturates, Urine Not Detected (Not Detect); Benzodiazepines Screen Urine Not Detected (Not Detect); Cannabinoid Screen Urine POSITIVE (Not Detect); Cocaine Screen Urine Not Detected (Not Detect); Fentanyl, urine Not Detected (Not Detect); Opiate Screen Urine Not Detected (Not Detect); Phencyclidine Screen Urine Not Detected (Not Detect)
[2021-12-07] MEDS: OLANZapine 5 MG TABLET PO (20:57)
[2021-12-07] MEDS: LORazepam 1 MG TABLET 2 MG PO (20:57)
[2021-12-08 06:04] VITALS: RESP 16
--- NOTE | 2021-12-08 06:08 | PC.NURSE ---
Patient slept through the night, no distress observed/reported, patient was tearful, mood depressed and labile, thought content paranoid/delusional, patient is off his medication for months, psych consult ordered to review medication, patient received Olanzapine 5 mg PO and Ativan 2 mg po at 2056 with + effect, will continue to monitor.
--- NOTE | 2021-12-08 09:25 | ECG_ITS ---
Test Reason : medical clearance Blood Pressure : / mmHG Vent. Rate : 070 BPM Atrial Rate : 070 BPM P-R Int : 146 ms QRS Dur : 086 ms QT Int : 400 ms P-R-T Axes : 078 056 045 degrees QTc Int : 432 ms Sinus rhythm with marked sinus arrhythmia Right atrial enlargement Borderline ECG When compared with ECG of 02-MAY-2020 10:29, No significant change was found Referred By: Mikael Talley Electronically Signed By:Neeraj Ambriz
--- NOTE | 2021-12-08 09:46 | MHC.CARE ---
CARE team called [facility] to obtain auth. CM will be assigned in 24hrs. Auth granted for 3 days with review date on Saturday12/11/21 or 12/12/21 depending on CM assigned. Auth number: [id number].
[2021-12-08 10:14] LABS: COVID-19 Test Negative (Negative); IDNOW Serial# 9DB6401D
--- NOTE | 2021-12-08 10:31 | PC.NURSE ---
Patient is awake with concerns regarding placement upstairs and its duration. Patient is tearful and speaking in circles. Expresses concern with friends. Refuses medication and food at this time. Requested prn rx for Ativan from provider.
--- NOTE | 2021-12-08 10:58 | PC.NURSE ---
Care team met with pt. Pt signed voluntary waiver for bed placement (M5). Patient continues to be tearful. Rx. request for nicotine gum sent to provider.
[2021-12-08 12:13] VITALS: BP 130/85; PULSE 60; RESP 16; TEMP 36.2; O2SAT 96
[2021-12-08] MEDS: Nicotine Polacrilex 2 MG GUM BUCCAL (13:32)
[2021-12-08] MEDS: OLANZapine 5 MG TABLET PO (13:32)
--- NOTE | 2021-12-08 14:09 | PC.NURSE ---
Pt is pacing in the pod. Pt continues to exhibit sx of casper. Provider notified. Medications ordered and given to the pt.
[2021-12-08] MEDS: LORazepam 1 MG TABLET PO (14:12)
--- NOTE | 2021-12-08 16:11 | PC.ADMIT ---
Pt is a 21 year old male who presents to from [facility] ED at approx 1545 on a cv status. Per chart review, Pt is known to the CARE team through one previous assessment. Pt assessed due to presenting with manic and bizarre behaviors. Pt is observed sitting up on hospital bed. Speech is rapid and tangential; he is unable to focus on assessment questions. Pt is irritable and reported being frustrated, stating the tv isn't real . pt expressed he needs help however was not able to provide details. 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 hx of noncompliance with medication and is not connected to providers. pt has a hx of decompensation when engaging in cannabis use resulting in an inpatient admission. Pt is covid - Utox + for THC. During admit, pt denied anxiety, depression, AH, VH. Pt mentioned that he has been awake for a few days but feels normal . Provider called and notified of admission. Start treatment plan and monitor for safety
[2021-12-08 18:00] VITALS: BP 120/84; PULSE 111; TEMP 36.3; O2SAT 99
[2021-12-08] MEDS: OLANZapine 10 MG TABLET PO (20:58)
[2021-12-09 06:00] VITALS: BP 122/79; PULSE 107; RESP 20; TEMP 36.3; O2SAT 99
[2021-12-09 08:15] LABS: Cholesterol 104 mg/dL; HDL Cholesterol 48 mg/dL; LDL Cholesterol Calculated 45 mg/dl; Magnesium 1.7 mg/dL (1.6-2.6); Triglycerides 59 mg/dL
[2021-12-09 08:21] LABS: Estimated Average Glucose 94 mg/dL; Hemoglobin A1c % 4.9 %
--- NOTE | 2021-12-09 08:28 | P.HPPS_ITS ---
HPI Date of Service: 12/09/21 Chief Complaint: casper cannabis use disoder Sources of Information: patient interviewed, chart reviewed and crisis/core team assessment reviewed HPI Subjective Notes: Conditional Voluntary Healthcare Proxy: No Guardianship: No Medical Problems Affecting Mental Status: No Narrative: Louis is a 21-year-old, white, single, unemployed (used to work at the [employer]), man who lives with his parents. This is 1 of several hospitalizations. He was last hospitalized a couple of years ago. He has history of bipolar disorder I. He also has history of alcohol abuse and has been alcohol-free since 11/20 but has gone back to using marijuana which according to his mother triggers his mood instability. He has been more disorganized, emotionally labile, possibly responding to internal stimuli. He denies any auditory or visual hallucinations. He denies any suicidal ideations. He was brought to the emergency room by his parents. He has not been taking any medications and is historically medication noncompliant. He was angry about being here and wanted to be discharged and when he was told that he could not leave he became tearful and angry. Eating has not been good and also has not been sleeping well. He has been attending AA meetings and talked about how he was ?deeply touched? yesterday at a meeting which led to him driving around but did not feel safe driving so he asked a friend to drive him back. He is not connected to any outpatient services at this time. He is not agreeable to taking medications. On admission he was put on Zyprexa 10 mg at night. Social history: Louis is 1 of 3 siblings. He lives with his parents were together. He did finish high school and couple of years of college. He states that he cut his real state license. He had been working at the [employer] but not currently. No marriages and no children. Past Psychiatric History: In Pt- 4, two with [facility], two with [facility] Out Pt-[facility]-psychotherapy; hx of psychopharmacology with creative services writer, however, stopped attending virtual appts September 2019. Trials: [place], Risperdal, Lamictal, Olanzapine Medical Evaluation Reviewed: Yes [facility] Medical History Cannabis use disorder, moderate, dependence No known health problems Social History: lives with parents, siblings. works at a [employer], in food delivery and in real estate. Diagnostics Vital Signs (24Hr): Vital Signs - 24 hr 12/08/21 12:13 12/08/21 18:00 12/09/21 06:00 Temperature 97.1 F 97.3 F 97.4 F Pulse Rate 60 111 H 107 H Respiratory Rate 16 20 Blood Pressure 130/85 120/84 122/79 Pulse Oximetry 96 99 99 Oxygen Delivery Method Room Air BMI result Body Mass Index 22.9 Labs Results: 12/07/21 17:19 12/07/21 17:19 Labs: Laboratory Results - last 48 hr 12/07/21 12/07/21 12/07/21 17:08 17:19 17:19 WBC 6.7 RBC 5.10 Hgb 14.8 Hct 42.7 MCV 83.7 MCH 29.0 MCHC 34.7 RDW 13.2 Plt Count 245 MPV 10.2 Immature Gran % (Auto) 0.3 Neut % (Auto) 72.6 Lymph % (Auto) 15.3 L [place] % (Auto) 11.1 H Eos % (Auto) 0.0 Baso % (Auto) 0.7 Lymph # (Auto) 1.0 L [place] # (Auto) 0.7 Eos # (Auto) 0.0 Baso # (Auto) 0.1 Abs Immat Gran (auto) 0.02 Absolute Neuts (auto) 4.8 Absolute Nucleated RBC 0.000 Nucleated RBC % (auto) 0.0 Sodium 138 Potassium 3.8 Chloride 99 Carbon Dioxide 23 Anion Gap 20 BUN 7 L Creatinine 1.15 Estim Creat Clear Calc 102.5 Estimated GFR > 60 Random Glucose 86 Estimat Average Glucose Hemoglobin A1c % Calcium 9.8 D Magnesium Total Bilirubin 1.7 H AST 28 ALT 21 Alkaline Phosphatase 65 Total Protein 8.0 Albumin 5.2 H Triglycerides Cholesterol LDL Cholesterol, Calc HDL Cholesterol Urine Opiates Screen Urine Fentanyl Screen Ur Barbiturates Screen Ur Phencyclidine Scrn Ur Amphetamines Screen U Benzodiazepines Scrn Urine Cocaine Screen U Marijuana (THC) Screen Ethyl Alcohol < 10 COVID-19 (ASHTYN) Negative COVID-19 Clin Com See Note 12/07/21 12/08/21 12/09/21 17:26 09:48 07:16 WBC RBC Hgb Hct MCV MCH MCHC RDW Plt Count MPV Immature Gran % (Auto) Neut % (Auto) Lymph % (Auto) [place] % (Auto) Eos % (Auto) Baso % (Auto) Lymph # (Auto) [place] # (Auto) Eos # (Auto) Baso # (Auto) Abs Immat Gran (auto) Absolute Neuts (auto) Absolute Nucleated RBC Nucleated RBC % (auto) Sodium Potassium Chloride Carbon Dioxide Anion Gap BUN Creatinine Estim Creat Clear Calc Estimated GFR Random Glucose Estimat Average Glucose 94 Hemoglobin A1c % 4.9 Calcium Magnesium Total Bilirubin AST ALT Alkaline Phosphatase Total Protein Albumin Triglycerides Cholesterol LDL Cholesterol, Calc HDL Cholesterol Urine Opiates Screen Not Detected Urine Fentanyl Screen Not Detected Ur Barbiturates Screen Not Detected Ur Phencyclidine Scrn Not Detected Ur Amphetamines Screen Not Detected U Benzodiazepines Scrn Not Detected Urine Cocaine Screen Not Detected U Marijuana (THC) Screen POSITIVE H Ethyl Alcohol COVID-19 (ASHTYN) Negative COVID-19 CompleteSet Com See Note 12/09/21 07:16 WBC RBC Hgb Hct MCV MCH MCHC RDW Plt Count MPV Immature Gran % (Auto) Neut % (Auto) Lymph % (Auto) [place] % (Auto) Eos % (Auto) Baso % (Auto) Lymph # (Auto) [place] # (Auto) Eos # (Auto) Baso # (Auto) Abs Immat Gran (auto) Absolute Neuts (auto) Absolute Nucleated RBC Nucleated RBC % (auto) Sodium Potassium Chloride Carbon Dioxide Anion Gap BUN Creatinine Estim Creat Clear Calc Estimated GFR Random Glucose Estimat Average Glucose Hemoglobin A1c % Calcium Magnesium 1.7 Total Bilirubin AST ALT Alkaline Phosphatase Total Protein Albumin Triglycerides 59 Cholesterol 104 LDL Cholesterol, Calc 45 HDL Cholesterol 48 Urine Opiates Screen Urine Fentanyl Screen Ur Barbiturates Screen Ur Phencyclidine Scrn Ur Amphetamines Screen U Benzodiazepines Scrn Urine Cocaine Screen U Marijuana (THC) Screen Ethyl Alcohol COVID-19 (ASHTYN) COVID-19 CompleteSet Com Meds/Allergies Allergies Allergies Allergy/AdvReac Type Severity Reaction Status Date / Time No Known Allergies Allergy Verified 03/31/20 20:25 [No Known Allergies*] Mental Status Exam Mental Status Exam Narrative: Louis was seen the morning after his admission. He is alert, oriented and initially pleasant. Speech is somewhat pressured. Moderate eye contact. Affect is appropriate and labile. He denies any auditory or visual hallucinat ions. No overt delusions. No indications of response to internal stimuli during the interview. He denies any SI/HI. Cognitively he is disorganized. Thought processes are tangential and circumstantial. Judgment is marginally intact. Assessment & Plan Assessment & Plan (1) Casper: Status: Acute Code(s): F30.9 - Manic episode, unspecified (2) Cannabis use disorder, moderate, dependence: Status: Acute Code(s): F12.20 - Cannabis dependence, uncomplicated Plan I tried very hard to talk Louis into considering a mood stabilizer such as Trileptal or going back to lithium but he was totally closed off to this. Zyprexa has been ordered at admission. Whether he will take it or not remains to be seen. Contact to be made with his family. Outpatient referral to be reinstituted Patient educated on: diagnosis, medication risk/benefits and substance abuse Reason for continued inpatient stay Substantial Risk for: harm to self and med/psych decompensation
[2021-12-09] MEDS: Nicotine Polacrilex 2 MG GUM BUCCAL ×4 (08:33→19:49)
[2021-12-09 08:36] LABS: Free T4 (Free Thyroxine) 1.69 ng/dL (0.71-1.85); Thyroid Stimulating Hormone 2.18 uIU/mL (0.32-4.0)
[2021-12-09] MEDS: OLANZapine 5 MG TABLET PO (10:00)
[2021-12-09 10:27] LABS: Folate 15.4 ng/mL (> or = 4.0); Vitamin B12 1878 pg/mL (200-900)
[2021-12-09 17:21] VITALS: BP 130/81; PULSE 97; RESP 18; TEMP 36.6; O2SAT 100
[2021-12-09] MEDS: OLANZapine 10 MG TABLET PO (19:31)
[2021-12-10 06:00] VITALS: BP 124/81; PULSE 101; RESP 18; TEMP 36.4; O2SAT 99
[2021-12-10] MEDS: hydrOXYzine HCL 25 MG TABLET PO ×2 (06:59→21:31)
[2021-12-10] MEDS: Nicotine Polacrilex 2 MG GUM BUCCAL ×6 (07:32→21:47)
--- NOTE | 2021-12-10 08:25 | HO.PSYCHPN ---
Subjective Subjective Date of Service: 12/10/21 Reason For Visit: sandy cannabis use disoder Subjective Notes: Conditional Voluntary Healthcare Proxy: No Guardianship: No Medical Problems Affecting Mental Status: No Interim History: Patient was seen and discussed in rounds today. Records and plans were reviewed. He continues to be very upset about being here and wants to be discharged which I tried to explain to him that I could not. He also is still refusing being put on any medications but he actually took a p.r.n. Zyprexa yesterday. He states that ?I am not drinking so I can take care of myself, I am not like the rest of people here.....etc,etc. He is eating adequately. Slept okay. Medication Compliance: Intermittent Side effects from medications: No Review of Systems Review of Systems Yes all other systems are reviewed and are negative Mental Status Exam Mental Status Exam Narrative: In today's visit he is alert, oriented and irritable and angry. Affect is labile, tearing up very quickly, possibly from anger. Speech is pressured. Little eye contact. No acute signs of psychosis. No SI. Cognitively he is disorganized and perseverative. Judgment is marginal. I again tried to approach him about a mood stabilizer but he is refusing meds. Diagnostics Vital Signs (24Hr): Vital Signs - 24 hr 12/09/21 17:21 12/10/21 06:00 Temperature 97.8 F 97.6 F Pulse Rate 97 101 H Respiratory Rate 18 18 Blood Pressure 130/81 124/81 Pulse Oximetry 100 99 Oxygen Delivery Method Room Air BMI result Body Mass Index 22.9 Labs Results: 12/07/21 17:19 12/07/21 17:19 Labs: Laboratory Results - last 48 hr 12/08/21 12/09/21 12/09/21 09:48 07:16 07:16 Estimat Average Glucose 94 Hemoglobin A1c % 4.9 Magnesium 1.7 Triglycerides 59 Cholesterol 104 LDL Cholesterol, Calc 45 HDL Cholesterol 48 Vitamin B12 Folate TSH 2.18 Free T4 1.69 COVID-19 (ASHTYN) Negative COVID-19 Clin Com See Note 12/09/21 07:16 Estimat Average Glucose Hemoglobin A1c % Magnesium Triglycerides Cholesterol LDL Cholesterol, Calc HDL Cholesterol Vitamin B12 1878 H Folate 15.4 TSH Free T4 COVID-19 (ASHTYN) COVID-19 Clin Com Medications Medications Current Medications Acetaminophen (Acetaminophen 325 Mg Tablet) 650 mg PO Q6H PRN PRN Reason: Headache/Pain Mild Scale (1-3) Al Hydroxide/Mg Hydroxide (Magnesium Hydrox/Alum Hydrox 30 Ml Oral.Susp) 30 ml PO Q6H PRN PRN Reason: Heartburn/Nausea Hydroxyzine HCl (Hydroxyzine Hcl 25 Mg Tablet) 25 mg PO Q6H PRN PRN Reason: Anxiety Last Admin: 12/10/21 06:59 Dose: 25 mg Lorazepam (Lorazepam 1 Mg Tablet) 1 mg PO Q4H PRN PRN Reason: agitation Magnesium Hydroxide (Milk Of Magnesia 30 Ml Oral.Susp) 30 ml PO DAILY PRN PRN Reason: Constipation Nicotine Polacrilex (Nicotine Polacrilex 2 Mg Gum) 2 mg BUCCAL Q2H PRN PRN Reason: Nicotine withdrawal Last Admin: 12/10/21 07:32 Dose: 2 mg Olanzapine (Olanzapine 5 Mg Tablet) 5 mg PO Q6H PRN PRN Reason: Anxiety, insomnia, agitation Last Admin: 12/09/21 10:00 Dose: 5 mg Olanzapine (Olanzapine 10 Mg Tablet) 10 mg PO BEDTIME ESPERANZA Last Admin: 12/09/21 19:31 Dose: 10 mg Trazodone HCl (Trazodone Hcl 50 Mg Tablet) 50 mg PO BEDTIME PRN PRN Reason: Insomnia Allergies Allergies Allergy/AdvReac Type Severity Reaction Status Date / Time No Known Allergies Allergy Verified 03/31/20 20:25 [No Known Allergies*] Assessment & Plan Assessment & Plan (1) Sandy: Status: Acute Code(s): F30.9 - Manic episode, unspecified (2) Cannabis use disorder, moderate, dependence: Status: Acute Code(s): F12.20 - Cannabis dependence, uncomplicated Plan 12/10: Continue current regimen and plans. Encourage him to take medications. No changes were made today I spent minutes with the patient and/or on the patient floor today, greater than?50% of which was spent counseling/coordinating care. Reason for contiued inpatient stay Substantial Risk for: med/psych decompensation
[2021-12-10] MEDS: OLANZapine 5 MG TABLET PO ×2 (08:27→15:24)
[2021-12-10] MEDS: LORazepam 1 MG TABLET PO (08:27)
[2021-12-10 16:39] VITALS: BP 139/94; PULSE 90; RESP 18; TEMP 37; O2SAT 99
[2021-12-10] MEDS: OLANZapine 10 MG TABLET PO (21:31)
[2021-12-11] MEDS: Nicotine Polacrilex 2 MG GUM BUCCAL ×5 (05:58→20:13)
[2021-12-11 06:00] VITALS: BP 131/84; PULSE 99; RESP 18; TEMP 36.7; O2SAT 99
[2021-12-11] MEDS: hydrOXYzine HCL 25 MG TABLET PO ×2 (09:44→16:05)
--- NOTE | 2021-12-11 20:01 | P.PNPSI_ITS ---
Subjective Subjective Date of Service: 12/11/21 Reason For Visit: casper cannabis use disoder Subjective Notes: Conditional Voluntary Healthcare Proxy: No Guardianship: No Medical Problems Affecting Mental Status: No Interim History: Discussed maintaining mood stability and moving forward. Review of Lonnie Rutledge. He will consider. Wanting discharge ESTELLE. Believes Abilify has been the best agent for him thus far. Continues to believe he does not have an illness and cannabis does not exacerbate symptoms. Medication Compliance: Yes Side effects from medications: No Attending Groups: Intermittent Review of Systems Acute medical concerns: No Medical Review of Systems: unchanged Review of Systems Reports behavioral changes Psychiatric: Reports anxiety, Reports behavioral changes, Reports difficulty concentrating, Reports hopelessness, Reports irritability, Reports anhedonia, Re ports mood swings and Reports paranoia Mental Status Exam Mental Status Exam Patient Appearance: Fatigued Patient Orientation: Person, Place and Time Level of Consciousness: Restless and Alert Patient Behavior: Talkative, Hyperactive, Cooperative, Anxious, Resistive to Care, Distractible, Good Eye Contact and Impulsive Mood Description: Labile Affect Description: Labile Patient Cognition Impaired: No Ability to Follow Directions: Good Speech Pattern: Perseverating, Spontaneous Speech and Pressured Memory Description: Episodic Impaired Hallucinations: None Delusions: Grandiose Perceptual Disturbances: Depersonalization and Derealization Thought Process: Distracted and Rumination Thought Content: positive for Racing and positive for Circumstantial Depressive Symptoms: Increased Anxiety, Diff. Making Decisions and Difficulty Concentrating Abnormal Motor Activity Signs and Symptoms: Restlessness Judgement: Fair Diagnostics Vital Signs (24Hr): Vital Signs - 24 hr 12/11/21 06:00 Temperature 98.1 F Pulse Rate 99 Respiratory Rate 18 Blood Pressure 131/84 Pulse Oximetry 99 BMI result Body Mass Index 22.9 Labs Results: 12/07/21 17:19 12/07/21 17:19 Medications Medications Current Medications Acetaminophen (Acetaminophen 325 Mg Tablet) 650 mg PO Q6H PRN PRN Reason: Headache/Pain Mild Scale (1-3) Al Hydroxide/Mg Hydroxide (Magnesium Hydrox/Alum Hydrox 30 Ml Oral.Susp) 30 ml PO Q6H PRN PRN Reason: Heartburn/Nausea Hydroxyzine HCl (Hydroxyzine Hcl 25 Mg Tablet) 25 mg PO Q6H PRN PRN Reason: Anxiety Last Admin: 12/11/21 16:05 Dose: 25 mg Lorazepam (Lorazepam 1 Mg Tablet) 1 mg PO Q4H PRN PRN Reason: agitation Last Admin: 12/10/21 08:27 Dose: 1 mg Magnesium Hydroxide (Milk Of Magnesia 30 Ml Oral.Susp) 30 ml PO DAILY PRN PRN Reason: Constipation Nicotine Polacrilex (Nicotine Polacrilex 2 Mg Gum) 2 mg BUCCAL Q2H PRN PRN Reason: Nicotine withdrawal Last Admin: 12/11/21 15:33 Dose: 2 mg Olanzapine (Olanzapine 5 Mg Tablet) 5 mg PO Q6H PRN PRN Reason: Anxiety, insomnia, agitation Last Admin: 12/10/21 15:24 Dose: 5 mg Olanzapine (Olanzapine 10 Mg Tablet) 10 mg PO BEDTIME ESPERANZA Last Admin: 12/10/21 21:31 Dose: 10 mg Trazodone HCl (Trazodone Hcl 50 Mg Tablet) 50 mg PO BEDTIME PRN PRN Reason: Insomnia Allergies Allergies Allergy/AdvReac Type Severity Reaction Status Date / Time No Known Allergies Allergy Verified 03/31/20 20:25 [No Known Allergies*] Assessment & Plan Assessment & Plan (1) Casper: Status: Acute Code(s): F30.9 - Manic episode, unspecified (2) Cannabis use disorder, moderate, dependence: Status: Acute Code(s): F12.20 - Cannabis dependence, uncomplicated Plan 12/10: Continue current regimen and plans. Encourage him to take medications. No changes were made today 12/11/21: Continue current plan. Considering Vraylar trial. I spent minutes with the patient and/or on the patient floor today, greater than?50% of which was spent counseling/coordinating care. Patient educated on: medication risk/benefits Informed Consent: further education needed Reason for contiued inpatient stay Substantial Risk for: inability to function and rapid decompensation
[2021-12-11 20:10] VITALS: BP 118/82; PULSE 96; TEMP 36.4; O2SAT 98
[2021-12-11] MEDS: LORazepam 1 MG TABLET PO (20:13)
[2021-12-11] MEDS: OLANZapine 10 MG TABLET PO (20:13)
[2021-12-12] MEDS: Nicotine Polacrilex 2 MG GUM BUCCAL ×7 (06:50→21:45)
[2021-12-12] MEDS: hydrOXYzine HCL 25 MG TABLET PO ×2 (08:13→13:24)
[2021-12-12] MEDS: ARIPiprazole 10 MG TABLET PO (08:13)
[2021-12-12] MEDS: OLANZapine 5 MG TABLET PO (11:25)
[2021-12-12] MEDS: Ondansetron ODT 4 MG TAB.RAPDIS TRANSLINGU (11:25)
[2021-12-12] MEDS: OLANZapine 10 MG TABLET PO (15:13)
[2021-12-12 18:00] VITALS: BP 125/80; PULSE 107; RESP 19; TEMP 36.3; O2SAT 97
[2021-12-12] MEDS: LORazepam 1 MG TABLET PO (18:04)
--- NOTE | 2021-12-12 18:32 | P.PNPSI_ITS ---
Subjective Subjective Date of Service: 12/12/21 Reason For Visit: casper cannabis use disoder Subjective Notes: Conditional Voluntary Healthcare Proxy: No Guardianship: No Medical Problems Affecting Mental Status: No Interim History: Abilify/Olanzapine not helping-pt agitated, wanting to leave. Reports unit too triggering-identifies triggers as seeing a [employer] Lucius bag, other patients behaviors, constipation-refuses laxative (reports diarrhea for several months- refuses GI consult as well). Fears room-mate who is moving to another room today. T-shirt sayings he also reports are triggering, I cannot watch TV . Expressed agitation with admission- I don't belong here, I will go to rehab, but not here, ever again . I am better than this, on a different level. Discussed prison treatment non compliance-therapy, medications, cannabis use which exacerbates symptoms and psychosocial conflicts which he will not address in therapy which precipitates a chronic state of crisis. Expressed anger- there is nothing wrong with me that could be fixed if people did as I want them to do. Discussed illness and free will, of self and others. Pt asks that I call parents to take him home. Discussion with pt's parents, Fátima and Randall who both report consistent decline for 5 years with several interventions which pt does not follow up with. Pt has returned to smoking for probably ~60 days, however, amount has been significant as they have found 20+ empty pens in his room. Pt has not been working or attending school. Since the [place] intervention he has been amotivated, stopped medications and has crumbled . Prior to this admission family was terrified that pt called Liang Cruz to verbalize that his cousin had SI. As a result of that call police responded to family home prior to pt's admission. Discussed pt's request to go to rehab-parents report this has not worked in the past for pt. They will call [facility] in [facility] [address] and [facility] in [facility]. Will continue to work on mood stabilization. Parents are not comfortable taking pt home in his current state of mind, they worry he will make a suicide attempt. Medication Compliance: Yes Side effects from medications: No Attending Groups: Intermittent Review of Systems Acute medical concerns: No Medical Review of Systems: unchanged Review of Systems Reports behavioral changes and Reports confusion Psychiatric: Reports anxiety, Reports behavioral changes, Reports change in appetite, Reports confusion, Reports depression, Reports difficulty concentrating, Reports hopelessness, Reports irritability, Reports anhedonia, Reports mood swings, Reports paranoia and Reports suicidal ideation (parents are concerned) Mental Status Exam Mental Status Exam Patient Appearance: Disheveled Patient Orientation: Person, Place, Time and Situation Level of Consciousness: Restless and Alert Patient Behavior: Guarded, Talkative, Hyperactive, Suspicious, Restless, Belligerent, Anxious, Fearful, Resistive to Care, Avoidant, Distractible, Isolative, Good Eye Contact and Impulsive Mood Description: Hostile, Labile and Angry Affect Description: Hostile, Labile and Angry Patient Cognition Impaired: Yes Ability to Follow Directions: Fair Speech Pattern: Perseverating, Spontaneous Speech, Cofabulation, Rapid and Pressured Memory Description: Remote Impaired and Episodic Impaired Hallucinations: None (denies) Delusions: Paranoid Ideation Perceptual Disturbances: Depersonalization Thought Process: Racing, Distracted and Rumination Thought Content: positive for Flight of Ideas, positive for Racing, positive for Obsessional Thoughts, positive for Circumstantial and positive for Perseveration Depressive Symptoms: Diff. Making Decisions, Increased Irritability, Changes in Appetite, Loss of Int. in Activity, Hopelessness, Isolating-Friends/Family, Feelings of Guilt, Unhappiness, Low Self Esteem and Difficulty Concentrating Abnormal Motor Activity Signs and Symptoms: Agitation and Restlessness Judgement: Poor Diagnostics Vital Signs (24Hr): Vital Signs - 24 hr 12/11/21 20:10 Temperature 97.5 F Pulse Rate 96 Blood Pressure 118/82 Pulse Oximetry 98 BMI result Body Mass Index 22.9 Labs Results: 12/07/21 17:19 12/07/21 17:19 Medications Medications Current Medications Acetaminophen (Acetaminophen 325 Mg Tablet) 650 mg PO Q6H PRN PRN Reason: Headache/Pain Mild Scale (1-3) Al Hydroxide/Mg Hydroxide (Magnesium Hydrox/Alum Hydrox 30 Ml Oral.Susp) 30 ml PO Q6H PRN PRN Reason: Heartburn/Nausea Divalproex Sodium (Divalproex Sodium Er 500 Mg Tab.Er.24h) 500 mg PO BEDTIME ESPERANZA Hydroxyzine HCl (Hydroxyzine Hcl 25 Mg Tablet) 25 mg PO Q6H PRN PRN Reason: Anxiety Last Admin: 12/12/21 13:24 Dose: 25 mg Lorazepam (Lorazepam 1 Mg Tablet) 1 mg PO Q4H PRN PRN Reason: agitation Last Admin: 12/12/21 18:04 Dose: 1 mg Magnesium Hydroxide (Milk Of Magnesia 30 Ml Oral.Susp) 30 ml PO DAILY PRN PRN Reason: Constipation Nicotine Polacrilex (Nicotine Polacrilex 2 Mg Gum) 2 mg BUCCAL Q2H PRN PRN Reason: Nicotine withdrawal Last Admin: 12/12/21 18:04 Dose: 2 mg Olanzapine (Olanzapine 5 Mg Tablet) 5 mg PO Q6H PRN PRN Reason: Anxiety, insomnia, agitation Last Admin: 12/12/21 11:25 Dose: 5 mg Olanzapine (Olanzapine 10 Mg Tablet) 20 mg PO BEDTIME ESPERANZA Ondansetron HCl (Ondansetron Odt 4 Mg Tab.Rapdis) 4 mg TRANSLINGU Q6H PRN PRN Reason: Nausea Last Admin: 12/12/21 11:25 Dose: 4 mg Trazodone HCl (Trazodone Hcl 50 Mg Tablet) 50 mg PO BEDTIME PRN PRN Reason: Insomnia Allergies Allergies Allergy/AdvReac Type Severity Reaction Status Date / Time No Known Allergies Allergy Verified 03/31/20 20:25 [No Known Allergies*] Assessment & Plan Assessment & Plan (1) Casper: Status: Acute Code(s): F30.9 - Manic episode, unspecified (2) Cannabis use disorder, moderate, dependence: Status: Acute Code(s): F12.20 - Cannabis dependence, uncomplicated Plan 12/10: Continue current regimen and plans. Encourage him to take medications. No changes were made today 12/12/21: Depakote ER 500 mg HS. Discussed with parents, who are looking for a longer term rehab once pt is stabilized-considering [facility] in [place] or [facility] in [place] I spent minutes with the patient and/or on the patient floor today, greater than?50% of which was spent counseling/coordinating care. Patient educated on: diagnosis, medication risk/benefits and therapeutic strategies Informed Consent: does not understand and further education needed Reason for contiued inpatient stay Substantial Risk for: harm to self, inability to function and rapid decompensation
[2021-12-12] MEDS: OLANZapine 10 MG TABLET 20 MG PO (20:39)
[2021-12-12] MEDS: Divalproex Sodium ER 500 MG TAB.ER.24H PO (20:40)
[2021-12-13] MEDS: hydrOXYzine HCL 25 MG TABLET PO ×2 (05:56→20:54)
[2021-12-13] MEDS: Nicotine Polacrilex 2 MG GUM BUCCAL ×4 (05:56→21:03)
[2021-12-13 06:20] VITALS: BP 130/83; PULSE 100; RESP 18; TEMP 37.1; O2SAT 100
[2021-12-13] MEDS: LORazepam 1 MG TABLET PO ×2 (08:17→16:36)
[2021-12-13 20:13] VITALS: BP 126/85; PULSE 90; TEMP 36.2
[2021-12-13] MEDS: Divalproex Sodium ER 500 MG TAB.ER.24H PO (20:50)
[2021-12-13] MEDS: OLANZapine 10 MG TABLET 20 MG PO (20:51)
[2021-12-14] MEDS: hydrOXYzine HCL 25 MG TABLET PO ×3 (05:13→18:48)
[2021-12-14 06:30] VITALS: BP 122/86; PULSE 89; RESP 18; TEMP 36.2; O2SAT 98
[2021-12-14] MEDS: Nicotine Polacrilex 2 MG GUM BUCCAL ×4 (06:37→18:54)
[2021-12-14] MEDS: OLANZapine 5 MG TABLET PO ×2 (08:50→21:36)
[2021-12-14 09:43] VITALS: BMI 18.2
[2021-12-14] MEDS: LORazepam 1 MG TABLET PO (13:17)
--- NOTE | 2021-12-14 16:16 | P.PNPSI_ITS ---
Subjective Subjective Date of Service: 12/14/21 Reason For Visit: sandy cannabis use disoder Subjective Notes: Conditional Voluntary and 3 Day Healthcare Proxy: No Guardianship: No Medical Problems Affecting Mental Status: No Interim History: Labile, will increase Depakote to 1000 mg HS. Wanting a longer term program, parents are working with his insurance to find this. Discussed dx of bipolar disorder Discussed use of cannabis and exacerbation of sx when this is used Discussed loss of functioning over the past years due to treatment non- compliance Discussed his dis-satisfaction with his life and accomplishments- I know I need someting longer . I want treatment . Medication Compliance: Yes (although struggling) Side effects from medications: No Attending Groups: Intermittent Review of Systems Acute medical concerns: No Medical Review of Systems: unchanged Review of Systems Reports behavioral changes Psychiatric: Reports abnormal sleep pattern, Reports anxiety, Reports behavioral changes, Reports change in appetite, Reports depression, Reports difficulty concentrating, Reports hopelessness, Reports irritability, Reports anhedonia, Reports mood swings and Reports paranoia Mental Status Exam Mental Status Exam Patient Appearance: Appropriate Patient Orientation: Person, Place, Time and Situation Level of Consciousness: Alert Patient Behavior: Talkative, Hyperactive, Restless, Anxious, Resistive to Care, Distractible, Good Eye Contact and Pacing Mood Description: Labile and Angry Affect Description: Labile Patient Cognition Impaired: No Ability to Follow Directions: Good Speech Pattern: Spontaneous Speech Memory Description: Episodic Impaired Hallucinations: None Delusions: Paranoid Ideation and Grandiose Perceptual Disturbances: Depersonalization and Derealization Thought Process: Distracted Thought Content: positive for Flight of Ideas, positive for Racing and positive for Circumstantial Depressive Symptoms: Increased Anxiety, Diff. Making Decisions, Increased Irritability, Difficulty Sleeping, Increased Fatigue, Low Self Esteem and Difficulty Concentrating Abnormal Motor Activity Signs and Symptoms: Agitation and Restlessness Judgement: Fair Diagnostics Vital Signs (24Hr): Vital Signs - 24 hr 12/13/21 20:13 12/14/21 06:30 Temperature 97.2 F 97.1 F Pulse Rate 90 89 Respiratory Rate 18 Blood Pressure 126/85 122/86 Pulse Oximetry 98 Oxygen Delivery Method Room Air BMI result Body Mass Index 18.2 Labs Results: 12/07/21 17:19 12/07/21 17:19 Medications Medications Current Medications Acetaminophen (Acetaminophen 325 Mg Tablet) 650 mg PO Q6H PRN PRN Reason: Headache/Pain Mild Scale (1-3) Al Hydroxide/Mg Hydroxide (Magnesium Hydrox/Alum Hydrox 30 Ml Oral.Susp) 30 ml PO Q6H PRN PRN Reason: Heartburn/Nausea Divalproex Sodium (Divalproex Sodium Er 500 Mg Tab.Er.24h) 1,000 mg PO BEDTIME ESPERANZA Hydroxyzine HCl (Hydroxyzine Hcl 25 Mg Tablet) 25 mg PO Q6H PRN PRN Reason: Anxiety Last Admin: 12/14/21 11:51 Dose: 25 mg Lorazepam (Lorazepam 1 Mg Tablet) 1 mg PO Q4H PRN PRN Reason: agitation Last Admin: 12/14/21 13:17 Dose: 1 mg Magnesium Hydroxide (Milk Of Magnesia 30 Ml Oral.Susp) 30 ml PO DAILY PRN PRN Reason: Constipation Nicotine Polacrilex (Nicotine Polacrilex 2 Mg Gum) 2 mg BUCCAL Q2H PRN PRN Reason: Nicotine withdrawal Last Admin: 12/14/21 13:17 Dose: 2 mg Olanzapine (Olanzapine 5 Mg Tablet) 5 mg PO Q6H PRN PRN Reason: Anxiety, insomnia, agitation Last Admin: 12/14/21 08:50 Dose: 5 mg Olanzapine (Olanzapine 10 Mg Tablet) 20 mg PO BEDTIME ESPERANZA Last Admin: 12/13/21 20:51 Dose: 20 mg Ondansetron HCl (Ondansetron Odt 4 Mg Tab.Rapdis) 4 mg TRANSLINGU Q6H PRN PRN Reason: Nausea Last Admin: 12/12/21 11:25 Dose: 4 mg Trazodone HCl (Trazodone Hcl 50 Mg Tablet) 50 mg PO BEDTIME PRN PRN Reason: Insomnia Allergies Allergies Allergy/AdvReac Type Severity Reaction Status Date / Time No Known Allergies Allergy Verified 03/31/20 20:25 [No Known Allergies*] Assessment & Plan Assessment & Plan (1) Sandy: Status: Acute Code(s): F30.9 - Manic episode, unspecified (2) Cannabis use disorder, moderate, dependence: Status: Acute Code(s): F12.20 - Cannabis dependence, uncomplicated Plan 12/10: Continue current regimen and plans. Encourage him to take medications. No changes were made today 12/12/21: Depakote ER 500 mg HS. Discussed with parents, who are looking for a longer term rehab once pt is stabilized-considering [facility] in [place] or [facility] in [place] 12/14/21 Increase Depakote ER to 1000 mg HS Probable discharge to a program in [place] on 12/15 which parents have made arrangements for I spent minutes with the patient and/or on the patient floor today, greater than?50% of which was spent counseling/coordinating care. Patient educated on: diagnosis, medication risk/benefits, substance abuse and therapeutic strategies Informed Consent: further education needed Reason for contiued inpatient stay Substantial Risk for: harm to self, inability to function and rapid decompensation
[2021-12-14 18:00] VITALS: BP 119/58; PULSE 75; TEMP 36.7; O2SAT 99
[2021-12-14] MEDS: OLANZapine 10 MG TABLET 20 MG PO (18:59)
[2021-12-15 06:00] VITALS: BP 124/84; PULSE 92; RESP 18; TEMP 36.6; O2SAT 99
[2021-12-15] MEDS: hydrOXYzine HCL 25 MG TABLET PO (06:25)
[2021-12-15] MEDS: Nicotine Polacrilex 2 MG GUM BUCCAL (08:00)
[2021-12-15] MEDS: OLANZapine 5 MG TABLET PO (08:38)
--- NOTE | 2021-12-15 11:07 | PM.PSYDC ---
DS: Providers Provider Date of Service: 12/15/21 Date of admission: 12/08/21 15:21 Date of discharge: 12/15/21 Primary care physician: Unknown Physician Admitting clinician: Sailaja Calderon Attending physician on admission: Sailaja Calderon Attending physician on discharge: Juan José Pang Discharging clinician: Dulce Harden DS: Diagnosis Discharge Diagnosis (1) Casper: Status: Acute (2) Cannabis use disorder, moderate, dependence: Status: Acute DS: Medications Discharge Medications Home Medications: Previous Rx's Medication Instructions Recorded divalproex 500 mg tablet,extended 1,000 mg PO BEDTIME #60 tabs 12/15/21 release 24 hr divalproex 500 mg tablet,extended 1,000 mg PO BEDTIME #60 tabs 12/15/21 release 24 hr (Depakote ER) hydroxyzine HCl 25 mg tablet 25 mg PO BID PRN anxiety #60 tabs 12/15/21 olanzapine 10 mg tablet 20 mg PO BEDTIME #30 tabs 12/15/21 olanzapine 20 mg tablet (Zyprexa) 20 mg PO BEDTIME #30 tabs 12/15/21 Mental Status Exam Mental Status Exam Patient Appearance: Appropriate Patient Orientation: Person, Place, Time and Situation Level of Consciousness: Alert Patient Behavior: Talkative, Hyperactive, Restless, Anxious, Resistive to Care, Distractible, Good Eye Contact and Pacing Mood Description: Labile and Angry Affect Description: Labile Patient Cognition Impaired: No Ability to Follow Directions: Good Speech Pattern: Spontaneous Speech Memory Description: Episodic Impaired Hallucinations: None Delusions: Paranoid Ideation and Grandiose Perceptual Disturbances: Depersonalization and Derealization Thought Process: Distracted Thought Content: positive for Flight of Ideas, positive for Racing and positive for Circumstantial Depressive Symptoms: Increased Anxiety, Diff. Making Decisions, Increased Irritability, Difficulty Sleeping, Increased Fatigue, Low Self Esteem and Difficulty Concentrating Abnormal Motor Activity Signs and Symptoms: Agitation and Restlessness Judgement: Fair Data Data Completed and Pending Completed studies during hospitalization [Text1]: 12/09/21 12/09/21 12/09/21 07:16 07:16 07:16 Estimat Average Glucose 94 Hemoglobin A1c % 4.9 Magnesium 1.7 Triglycerides 59 Cholesterol 104 LDL Cholesterol, Calc 45 HDL Cholesterol 48 Vitamin B12 1878 H Folate 15.4 TSH 2.18 Free T4 1.69 DS: Summary Hospital Course Hospital Course: 21 yo male, admitted to adult psychiatry for casper and abuse of cannabis, which by history exacerbates casper. Pt was difficult to contain on the unit. He had the belief that he did not require treatment due to his status in community, a strong symptom of his casper by history. Prior to admission, Louis had been non compliant with medications, Trileptal, Seroquel, Abilify. Attempts to re-introduce these agents were not successful. Depakote and Olanzapine were initiated. Family discussed longer term care with Louis's insurance plan and pt was transferred to [facility] in [place], a dual diagnosis unit where Louis is expected to remain for 90-180 days. Time spent discussing smoking cessation with patient: 3 to 10 minutes Status at Discharge Functional status at discharge: independent ambulation Overall status at discharge: patient is not back to baseline Time Spent with Patient Time attestation: Total time spent providing and/or coordinating discharge services: 40 Time spent: Greater than 30 minutes Discharge Plan Discharge Patient Disposition: er Inpatient Rehab Fac Discharge Diagnosis: Bipolar Disorder, Casper Cannabis Use Disorder, Severe, Dependence Referrals: [facility] ([facility]) [Other] - 1 Week (Please contact [facility] at the above number a week before discharge from [facility] to obtain follow-up therapy and psychiatric medication management appointments. If you are unable to reach an intake staff member, please dial [phone]. [phone] to speak to Lola or [phone] to speak to Rubi to complete the referral) [facility] (dual-diagnosis) [Other] - 12/15/21 3:00 pm (You have been accepted to [facility] for dual-diagnosis inpatient treatment) Discharge Medications: New olanzapine 10 mg Tablet 20 mg PO BEDTIME Qty: 30 0RF divalproex 500 mg Tablet Extended Release 24 Hr 1,000 mg PO BEDTIME Qty: 60 0RF divalproex [Depakote ER] 500 mg tablet extended release 24 hr 1,000 mg PO BEDTIME Qty: 60 0RF olanzapine [Zyprexa] 20 mg tablet 20 mg PO BEDTIME Qty: 30 0RF hydroxyzine HCl 25 mg tablet 25 mg PO BID PRN (Reason: anxiety) Qty: 60 0RF Discontinued aripiprazole [Abilify] 15 mg tablet 15 mg PO DAILY 30 Days Qty: 30 0RF quetiapine [Seroquel] 25 mg tablet 25 mg PO BEDTIME Qty: 30 0RF Rx Instructions: 1 tab bedtime may take up to 2 tabs at bedtime for sleep/casper oxcarbazepine 600 mg tablet 600 mg PO BEDTIME Qty: 14 1RF hydroxyzine HCl 25 mg tablet 25 mg PO BID PRN (Reason: anxiety/insomnia) Qty: 30 0RF quetiapine [Seroquel] 25 mg tablet 25 mg PO BEDTIME Qty: 30 0RF Rx Instructions: 1-2 tabs at bedtime Discharge Orders: Discharge Order (Routine); Ordered 12/15/21 Ordered By: Dulce Harden Diet: Advance to usual diet Activity on Discharge: As tolerated Stand Alone Forms: Patient Portal Discharge page, Community Support Care Plan Goals: Mood Stabilization Sobriety Practice use of coping skills Health Concerns: Bipolar Disorder, Casper Cannabis Use Disorder, dependence Plan of Treatment: Transfer to rehab facility for further intensive treatment Assessment: Non-suicidal Manic with psychotic features. 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 Discharge Date/Time: 12/15/21 12:45
[2021-12-15] MEDS: LORazepam 1 MG TABLET PO (12:00)
== END 2021-12-15 12:45 | DRG 885 ==
LOC: HO.ED 12-08 15:50 → HO.PM5 12-08 15:50
PROVIDERS: Clinical Nurse Specialist Psychiatric/Mental Health, Adult; Nurse Practitioner Family; Admitting Provider Psychiatry & Neurology Psychiatry; Emergency Provider Emergency Medicine Emergency Medical Services; Visit Provider Psychiatry & Neurology Psychiatry
DX: F31.10 Bipolar disorder, current episode manic without psychotic features, unspecified (principal); F12.20 Cannabis dependence, uncomplicated; Z20.822 Contact with and (suspected) exposure to COVID-19; Z79.899 Other long term (current) drug therapy
CPT/HCPCS: 36415; 80053; 80061; 80307; 82077; 82607; 82746; 83036; 83735; 84439; 84443; 85025; 87635; 93005; 99285